=== PATIENT | female | born 1955 | race Caucasian/White ===

== ENCOUNTER 2020-03-11 17:03 | Outpatient (CLI) | payer BC, SELFPAY ==
--- NOTE | ~2020-03-11 | MM_ITS ---
EXAMINATION: MM screening nasir BI w mehdi HISTORY: Screening mammogram TECHNIQUE: Craniocaudal and mediolateral oblique 3-D tomosynthesis images were obtained and synthetic 2-D images were generated. CAD analysis was submitted and interpreted. COMPARISON: 01/25/2019, 01/22/2018, 01/11/2017 bilateral digital screening mammogram examinations BREAST PARENCHYMAL COMPOSITION: There are scattered areas of fibroglandular density. FINDINGS: Surgical clips are noted on the left. There is no evidence of suspicious mass, calcificatio n, or architectural distortion to suggest malignancy in either breast. There has been no suspicious i nterval change. IMPRESSION: 1. No mammographic evidence of malignancy. 2. Recommend routine screening mammography in one year. BI-RADS Category 2: Benign finding(s). Reviewed, dictated and finalized at location A.
== END 2020-03-11 17:04 | disposition home or self-care (01) ==
LOC: ANHIMG 17:08
PROVIDERS: PCP Family Medicine; Visit Provider Family Medicine
DX: Z12.31 Encounter for screening mammogram for malignant neoplasm of breast (principal)
CPT/HCPCS: 77063; 77067

== ENCOUNTER 2020-07-07 08:59 | Outpatient (RCR) | payer BC, SELFPAY | END 2020-09-22 17:55 | disposition home or self-care (01) | LOC: ANHDMC 08:59 | PROVIDERS: PCP Family Medicine; Visit Provider Family Medicine | DX: E11.65 Type 2 diabetes mellitus with hyperglycemia (principal); Z71.89 Other specified counseling | CPT/HCPCS: G0108 ==

== ENCOUNTER 2021-01-15 11:50 | Emergency (ER) | payer SELFPAY | END 2021-01-15 11:53 | disposition left against medical advice (07) | PROVIDERS: PCP Family Medicine | DX: Z53.21 Procedure and treatment not carried out due to patient leaving prior to being seen by health care provider (principal) | CPT/HCPCS: 99199 ==

== ENCOUNTER 2021-01-17 11:05 | Emergency (ER) | payer BC, SELFPAY ==
--- NOTE | ~2021-01-17 | XR_ITS ---
XR shoulder RT min 2V DATE: 01/17/2021 11:21 INDICATION: Pain for 4 days, unable to abduct the arm completely. No injury. TECHNIQUE: 4 views COMPARISON: None FINDINGS: No fracture, dislocation, periosteal reaction or bone destruction. There is mild degenerati ve change at the right acromioclavicular joint. No abnormal soft tissue calcification. Degenerative spurring of the thoracic spine. Degenerative changes are noted at the cervical spine as well. IMPRESSION: Mild degenerative change at the right acromioclavicular joint Degenerative changes of the cervical and thoracic spine Reviewed, dictated and finalized at location B.
[2021-01-17 11:11] VITALS: BP 154/76; PULSE 89; RESP 14; TEMP 36.6; O2SAT 99
--- NOTE | 2021-01-17 12:09 | ED.UPPEXIN ---
HPI - Extremity Injury (Upper) General Chief Complaint: Extremity Injury, Upper Stated Complaint: R SHOULDER PAIN Time Seen by Provider: 01/17/21 11:46 History of Present Illness HPI narrative: Patient is a 65-year-old female who presents to the ER with right shoulder pain. Ongoing for 4 to 5 days. No known injury. Went to urgent care and was prescribed naproxen and methocarbamol. She is still having pain and it is worse at night. She reports she needs something to sleep. No numbness or tingling to the extremity. Pain is worse with certain movements of the shoulder and with turning her head at times. Related Data Home Medications Medication Instructions Recorded Confirmed aspirin 81 mg tablet,delayed 81 mg PO DAILY 06/03/19 09/15/20 release lancets 33 gauge #100 each 06/03/19 09/15/20 Allergies Allergy/AdvReac Type Severity Reaction Status Date / Time dapagliflozin Allergy Unknown yeast Verified 01/17/21 11:07 infections metformin AdvReac Intermediate diarrhea Verified 01/17/21 11:07 celecoxib AdvReac Mild HANDS AND Verified 01/17/21 11:07 FEET NUMB Review of Systems Review of Systems: All systems reviewed & are unremarkable except as noted in HPI and below Constitutional: Constitutional: Denies chills, Denies fever(s) and Denies weakness Cardiovascular: Cardiovascular: Denies chest pain and Denies radiating jaw, neck or arm pain Respiratory: Respiratory: Denies cough and Denies dyspnea Musculoskeletal: Musculoskeletal: Denies arthralgias, Denies joint swelling and Reports muscle cramps Neurologic: Denies syncope, Denies focal weakness and Denies numbness [facility] Past Medical History Medical History (Updated 01/17/21 @ 12:21 by Allen Eller MD) Diabetes mellitus type 2, uncontrolled HLD (hyperlipidemia) HTN (hypertension) Hypothyroidism long-term current use of insulin Family History Family History Mother Family history of osteoporosis Family history of chronic obstructive pulmonary disease Sibling Family history of malignant neoplasm of breast in first degree relative Social History Social History (Updated 09/15/20 @ 16:39 by Destiny Hopper) Social History: Smoking packs per day: 1 Smoking cigarettes per day: 20.0 Years smoked: 30 Smoking pack-years: 30.00 Smoking status: Former smoker Tobacco type: cigarettes Second hand tobacco smoke exposure: No Smoking end date: 06/18/16 Alcohol intake: never Substance use: never Substance use type: does not use Gender identity (if verbalized by the patient): Female Exam Narrative: GENERAL: Well-appearing, well-nourished, and in no acute distress. HEAD: Normocephalic, atraumatic. NECK: Supple. No paraspinal muscular tenderness. No midline tenderness. Range of motion preserved. EXTREMITIES: Tender palpation over the trapezius musculature of the right upper extremity. Point tender in 2 separate areas. No tenderness on the left. Patient has full range of motion with forward flexion as well as internal and external rotation at the shoulder. No joint tenderness. Neurovascular intact in upper extremity. SKIN: Warm, dry, no rash. NEURO: Alert and oriented x3. PSYCH: Normal mood and affect. Course Course Emergency Course: Discussed diagnosis and treatment plan. Patient verbalized understanding. Recommend follow-up with PCP as she may require physical therapy. Vital Signs Vital signs: Vital Signs Temperature 97.8 F 01/17/21 11:11 Pulse Rate 89 01/17/21 11:11 Respiratory Rate 14 01/17/21 11:11 Blood Pressure 154/76 H 01/17/21 11:11 Pulse Oximetry 99 01/17/21 11:11 Temperature 97.8 F 01/17/21 11:11 Pulse Rate 89 01/17/21 11:11 Respiratory Rate 14 01/17/21 11:11 Blood Pressure 154/76 H 01/17/21 11:11 Pulse Oximetry 99 01/17/21 11:11 MDM - Extremity Injury (Upper) Imaging Data Radiologist's impr
[2021-01-17] MEDS: HYDROcodone/acetaminophen (*CRX) 5-325 MG TABLET 1 TAB PO (12:13)
== END 2021-01-17 12:54 | disposition home or self-care (01) ==
PROVIDERS: Emergency Provider Emergency Medicine; PCP Family Medicine
DX: S46.911A Strain of unspecified muscle, fascia and tendon at shoulder and upper arm level, right arm, initial encounter (principal); M62.838 Other muscle spasm; E11.9 Type 2 diabetes mellitus without complications; E78.5 Hyperlipidemia, unspecified; I10 Essential (primary) hypertension; E03.9 Hypothyroidism, unspecified; Z87.891 Personal history of nicotine dependence; Z79.4 Long term (current) use of insulin; Z79.82 Long term (current) use of aspirin; X58.XXXA Exposure to other specified factors, initial encounter
CPT/HCPCS: 73030; 99283; A9270

== ENCOUNTER 2021-04-28 16:52 | Outpatient (CLI) | payer BC, SELFPAY ==
--- NOTE | ~2021-04-28 | MM_ITS ---
EXAMINATION: MM screening nasir BI w mehdi HISTORY: Screening mammogram TECHNIQUE: Craniocaudal and mediolateral oblique 3-D tomosynthesis images were obtained and synthetic 2-D images were generated. CAD analysis was submitted and interpreted. COMPARISON: 03/07/2020, 01/25/2019, 01/22/2018 bilateral screening mammogram examinations BREAST PARENCHYMAL COMPOSITION: There are scattered areas of fibroglandular density. FINDINGS: Surgical clips are noted in the mid inner left breast; history of prior benign left breast biopsy 20 years ago. Scattered small low-density circumscribed opacities are noted, particularly in t he outer left breast, stable in appearance. Occasional bilateral benign calcifications. There is no e vidence of suspicious mass, calcification, or architectural distortion to suggest malignancy in eithe r breast. There has been no suspicious interval change. IMPRESSION: 1. No mammographic evidence of malignancy. 2. Recommend routine screening mammography in one year. BI-RADS Category 2: Benign finding(s). Reviewed, dictated and finalized at location A. BUILDER
== END 2021-04-28 16:53 | disposition home or self-care (01) ==
LOC: ANHIMG 16:55
PROVIDERS: PCP Family Medicine; Visit Provider Family Medicine
DX: Z12.31 Encounter for screening mammogram for malignant neoplasm of breast (principal)
CPT/HCPCS: 77063; 77067

== ENCOUNTER 2021-08-22 17:02 | Emergency (ER) | payer BC, SELFPAY ==
[2021-08-22 17:06] VITALS: BP 154/74; PULSE 90; RESP 16; TEMP 36.8; O2SAT 98
--- NOTE | 2021-08-22 17:16 | ED.FEMALEGU ---
HPI - Female Genitourinary General Chief complaint: Urogenital-Female Stated complaint: Urinary pain Time Seen by Provider: 08/22/21 17:17 Source: patient and RN notes reviewed Mode of arrival: ambulatory Limitations: no limitations History of Present Illness HPI Narrative: 65-year-old female with history of urinary tract infections reports dysuria, frequency, cloudy urine with a foul smell for several days. She denies taking any [id number] medications for relief. She denies fever, back pain, abdominal pain. She denies abnormal vaginal discharge. MD elicited complaint: UTI Related Data Home Medications Medication Instructions Recorded Confirmed aspirin 81 mg tablet,delayed 81 mg PO DAILY 06/03/19 08/22/21 release lancets 33 gauge #100 each 06/03/19 08/22/21 insulin degludec [Tresiba 50 unit SUBCUT DAILY 08/22/21 08/22/21 FlexTouch U-100] Allergies Allergy/AdvReac Type Severity Reaction Status Date / Time dapagliflozin Allergy Unknown yeast Verified 08/22/21 17:08 infections metformin AdvReac Intermediate diarrhea Verified 08/22/21 17:08 celecoxib AdvReac Mild HANDS AND Verified 08/22/21 17:08 FEET NUMB Review of Systems Review of Systems: CONSTITUTIONAL: Denies malaise, chills, sweats, or fever. CARDIOVASCULAR: Denies chest pain, palpitations, or edema. RESPIRATORY: Denies cough or dyspnea. GASTROINTESTINAL: Denies abdominal pain, nausea, vomiting, diarrhea GENITOURINARY: Reports dysuria, frequency, malodorous and cloudy urine. Denies urgency, suprapubic pressure. Denies flank pain or hematuria. SKIN: Denies rash or itching. MUSCULOSKELETAL: Denies back pain or myalgia. All systems reviewed & are unremarkable except as noted in HPI and below PMFSH Past Medical History Medical History Diabetes mellitus type 2, uncontrolled HLD (hyperlipidemia) HTN (hypertension) Hypothyroidism group home current use of insulin Family History Family History Mother Family history of osteoporosis Family history of chronic obstructive pulmonary disease Sibling Family history of malignant neoplasm of breast in first degree relative Social History Social History (Updated 07/13/21 @ 16:31 by Violet Grant Social History: Smoking packs per day: 1 Smoking cigarettes per day: 20.0 Years smoked: 30 Smoking pack-years: 30.00 Smoking status: Former smoker Tobacco type: cigarettes Second hand tobacco smoke exposure: No Smoking end date: 06/18/16 Alcohol intake: never Substance use: never Substance use type: does not use Gender identity (if verbalized by the patient): Female Sexual Orientation (if Verbalized by the Patient): Straight or Heterosexual Comments At time of signature, agree with nursing past medical, surgical, social and family history. There is no relevant family history pertinent to the presenting complaint Exam Narrative: GENERAL: Well-appearing, well-nourished, and in no acute distress. HEAD: Normocephalic. EYES: PERRLA, conjunctivae clear. NECK: Supple. No lymphadenopathy CHEST: Clear to auscultation. No respiratory distress. HEART: Regular rate and rhythm. ABDOMEN: Soft, nontender upon palpation, nondistended, normal active bowel sounds, no palpable or pulsatile masses, no guarding. No CVA tenderness SKIN: Warm, dry, no rash. NEURO: Alert and oriented x3. PSYCH: Normal mood and affect Course Course Emergency Course: Patient is aware of diagnosis, understands and agrees to treatment plan. Anticipatory guidance given. Patient agrees to follow-up as directed and is aware of reasons to seek care at the emergency department. Portions of this record may have been created with voice recognition software Level of Care: Express Care Visit Vital Signs Vital signs: Vital Signs Temperature 98.3 F 08/22/21 17:06 Pulse Rate 90
== END 2021-08-22 17:25 | disposition home or self-care (01) ==
PROVIDERS: Emergency Provider Nurse Practitioner; PCP Family Medicine
DX: N39.0 Urinary tract infection, site not specified (principal); Z87.891 Personal history of nicotine dependence; E11.9 Type 2 diabetes mellitus without complications; E78.5 Hyperlipidemia, unspecified; I10 Essential (primary) hypertension; E03.9 Hypothyroidism, unspecified; Z79.4 Long term (current) use of insulin; Z79.82 Long term (current) use of aspirin
CPT/HCPCS: 81003; 87077; 87086; 87186; 99213; G0463

== ENCOUNTER 2022-04-03 01:06 | Day surgery (SDC) | payer BC, SELFPAY ==
[2022-03-16 12:06] VITALS: BMI 39.9
--- NOTE | 2022-03-31 15:52 | PM.HPGS ---
History of Present Illness History of Present Illness Consent: Risks, benefits, and alternatives have been discussed and questions answered. Patient agrees to proceed with procedure. Chief complaint: neoplasm screening Narrative: Emilie Reno is a 66 year old female Referred for colon cancer screening. 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 Family History Family History Mother Family history of osteoporosis Family history of chronic obstructive pulmonary disease Sibling Family history of malignant neoplasm of breast in first degree relative Social History Social History Social History: Smoking packs per day: 1 Smoking cigarettes per day: 20.0 Years smoked: 30 Smoking pack-years: 30.00 Smoking status: Former smoker Tobacco type: cigarettes Second hand tobacco smoke exposure: No Smoking end date: 06/18/16 Alcohol intake: never Substance use: never Substance use type: does not use Living arrangements: with family Gender identity (if verbalized by the patient): Female Sexual Orientation (if Verbalized by the Patient): Straight or Heterosexual Spiritual care concerns: No Meds Home Medications and Allergies Home Medications Medication Instructions Recorded Confirmed Type aspirin 81 mg tablet,delayed 81 mg PO DAILY 06/03/19 03/16/22 History release (Aspir-Low) lancets 33 gauge (OneTouch Delica #100 ea 06/03/19 02/23/22 History Lancets) blood sugar diagnostic (Accu-Chek #100 ea 04/26/20 02/23/22 Rx Guide test strips) blood-glucose meter (Accu-Chek #1 ea 04/26/20 02/23/22 Rx Guide Glucose Meter) lancets #100 ea 08/30/20 02/23/22 Rx fenofibrate 54 mg tablet 54 mg PO DAILY #90 tabs 10/17/21 03/16/22 Rx semaglutide 2 mg/dose (8 mg/3 mL) 2 mg (0.75 mL) subcut WEEKLY 3 02/23/22 03/16/22 Rx subcutaneous pen injector (Ozempic) months #9.75 mL insulin degludec 200 unit/mL (3 65 unit subcut DAILY 03/16/22 03/16/22 History mL) subcutaneous pen (Tresiba FlexTouch U-200 insulin) levothyroxine 137 mcg tablet 137 mcg PO DAILY 03/16/22 03/16/22 History metoprolol succinate 100 mg 100 mg PO DAILY 03/16/22 03/16/22 History tablet,extended release 24 hr rosuvastatin 10 mg tablet 10 mg PO DAILY 03/16/22 03/16/22 History valsartan 80 mg tablet 80 mg PO DAILY 03/16/22 03/16/22 History Allergies Allergy/AdvReac Type Severity Reaction Status Date / Time metformin AdvReac Intermediate diarrhea Verified 04/03/22 07:05 celecoxib AdvReac Mild HANDS AND Verified 04/03/22 07:05 FEET NUMB dapagliflozin AdvReac Unknown yeast Verified 04/03/22 07:05 infections Exam Const: General: alert Orientation/consciousness: patient oriented x3 Resp: Auscultation: clear to auscultation bilaterally Cardio: Rhythm: regular rhythm GI: GI Palp: Yes Soft to palpation and No Tenderness to palpation present (GI) Neuro: General: patient oriented x3 Assessment and Plan Assessment and plan (1) Colon cancer screening: Code(s): Z12.11 - Encounter for screening for malignant neoplasm of colon Status: Acute Assessment and Plan: Colonoscopy with possible biopsy or polypectomy or cautery or injection of substances.
[2022-04-03 07:07] VITALS: BP 179/108; PULSE 123; RESP 20; TEMP 36.6; O2SAT 98; BMI 39.9
[2022-04-03] MEDS: LACTATED RINGERS 1,000 ML 150 ML IV CONT (07:10)
--- NOTE | 2022-04-03 07:17 | WPDANESEPPF ---
Anes - Initial Pre Proc Eval Procedure: Operation Date: 04/03/22 08:00 Proposed Procedures p Screening Colonoscopy - Marc Gilbert MD Date/Time: 04/03/22 07:17 Surgeon: Marc Gilbert MD Pre Op Diagnosis: neoplasm screening Patient Data Age: 66 Gender: F Height: 1.75 m Weight: 122.7 kg Last Vital Signs Temp 36.6 C 04/03/22 07:07 Pulse 123 H 04/03/22 07:07 Resp 20 04/03/22 07:07 BP 179/108 H 04/03/22 07:07 Pulse Ox 98 04/03/22 07:07 O2 Del Method Room Air 04/03/22 07:07 Allergies Allergy/AdvReac Type Severity Reaction Status Date / Time metformin AdvReac Intermediate diarrhea Verified 04/03/22 07:05 celecoxib AdvReac Mild HANDS AND Verified 04/03/22 07:05 FEET NUMB dapagliflozin AdvReac Unknown yeast Verified 04/03/22 07:05 infections Home Medications Medication Instructions Recorded Confirmed Type aspirin 81 mg tablet,delayed 81 mg PO DAILY 06/03/19 03/16/22 History release (Aspir-Low) lancets 33 gauge (OneTouch Delica #100 ea 06/03/19 02/23/22 History Lancets) blood sugar diagnostic (Accu-Chek #100 ea 04/26/20 02/23/22 Rx Guide test strips) blood-glucose meter (Accu-Chek #1 ea 04/26/20 02/23/22 Rx Guide Glucose Meter) lancets #100 ea 08/30/20 02/23/22 Rx fenofibrate 54 mg tablet 54 mg PO DAILY #90 tabs 10/17/21 03/16/22 Rx semaglutide 2 mg/dose (8 mg/3 mL) 2 mg (0.75 mL) subcut WEEKLY 3 02/23/22 03/16/22 Rx subcutaneous pen injector (Ozempic) months #9.75 mL insulin degludec 200 unit/mL (3 65 unit subcut DAILY 03/16/22 03/16/22 History mL) subcutaneous pen (Tresiba FlexTouch U-200 insulin) levothyroxine 137 mcg tablet 137 mcg PO DAILY 03/16/22 03/16/22 History metoprolol succinate 100 mg 100 mg PO DAILY 03/16/22 03/16/22 History tablet,extended release 24 hr rosuvastatin 10 mg tablet 10 mg PO DAILY 03/16/22 03/16/22 History valsartan 80 mg tablet 80 mg PO DAILY 03/16/22 03/16/22 History Patient hx anesthesia problems: none Family hx anesthesia problems: none Results Review: All pre-operative results and documents have been reviewed as part of the pre-operative evaluation. [facility] Past Medical History Medical History Diabetes mellitus type 2, uncontrolled HLD (hyperlipidemia) HTN (hypertension) Hypothyroidism prison current use of insulin Family History Family History Mother Family history of osteoporosis Family history of chronic obstructive pulmonary disease Sibling Family history of malignant neoplasm of breast in first degree relative Social History Social History Social History: Smoking packs per day: 1 Smoking cigarettes per day: 20.0 Years smoked: 30 Smoking pack-years: 30.00 Smoking status: Former smoker Tobacco type: cigarettes Second hand tobacco smoke exposure: No Smoking end date: 06/18/16 Alcohol intake: never Substance use: never Substance use type: does not use Living arrangements: with family Gender identity (if verbalized by the patient): Female Sexual Orientation (if Verbalized by the Patient): Straight or Heterosexual Spiritual care concerns: No Anes - Eval Final PreProcedure Day of Procedure 04/03/22 07:17 Patient weight: obese Heart: regular rate and rhythm Lungs: clear to auscultation Airway: Mallampati scale class II Neurological: alert and oriented Last oral intake: >/= 8 hours ASA classification: III Emergent: no Anesthetic plan: proceed Anesthesia type and monitoring: general GIVS and standard monitoring Results Review: All pre-operative results and documents have been reviewed as part of the pre-operative evaluation. Informed Consent: The patient's anesthetic plan and its attendant risks and benefits were discussed with the patient/family/POA. Questions were solicited and ans
[2022-04-03 07:21] LABS: Glucose Point of Care 245 mg/dl (65-105)
[2022-04-03 08:22] VITALS: BP 133/69; PULSE 90; RESP 16; O2SAT 95
[2022-04-03 08:32] VITALS: BP 139/78; PULSE 87; RESP 17; O2SAT 98
[2022-04-03 08:42] VITALS: BP 118/75; PULSE 83; RESP 18; O2SAT 99
[2022-04-03 08:51] LABS: Glucose Point of Care 217 mg/dl (65-105)
== END 2022-04-03 08:51 | disposition home or self-care (01) ==
PROVIDERS: PCP Family Medicine; Visit Provider Internal Medicine Gastroenterology
PROC: 0DJD8ZZ Inspection of Lower Intestinal Tract, Via Natural or Artificial Opening Endoscopic (ICD-10-PCS; CPT 45378; principal; 2022-04-03 08:00)
DX: Z12.11 Encounter for screening for malignant neoplasm of colon (principal); D12.5 Benign neoplasm of sigmoid colon; Z79.82 Long term (current) use of aspirin; Z79.4 Long term (current) use of insulin; I10 Essential (primary) hypertension; E03.9 Hypothyroidism, unspecified; E11.9 Type 2 diabetes mellitus without complications; E78.5 Hyperlipidemia, unspecified; Z87.891 Personal history of nicotine dependence; E66.9 Obesity, unspecified; Z68.39 Body mass index [BMI] 39.0-39.9, adult
CPT/HCPCS: 45385; 45381; 82948; 88305; J2704; J7120

== ENCOUNTER 2022-05-08 16:05 | Emergency (ER) | payer BC, SELFPAY ==
--- NOTE | 2022-05-08 16:14 | ED.URI ---
HPI - URI/Sore Throat General Chief Complaint: Upper Respiratory Infection Stated Complaint: Sore Throat, Rt Ear Irritation Time Seen by Provider: 05/08/22 16:15 Source: patient and RN notes reviewed History of Present Illness HPI Narrative: Patient is a 66-year-old female who presents to the Urgent Care with complaints of right ear pain and sore throat. Patient states that it started on Sunday and she has been taking Tylenol and ibuprofen for the pain. Patient denies any fevers, nausea, vomiting or headaches. Denies any ill exposures. No other acute complaints. No acute distress noted. Patient aware of the plan of care. Some parts of this dictation were generated by voice recognition software and may contain typographical and/or grammatical inaccuracies. Related Data Home Medications Medication Instructions Recorded Confirmed aspirin 81 mg tablet,delayed 81 mg PO DAILY 06/03/19 05/08/22 release (Aspir-Low) lancets 33 gauge (OneTouch Delica #100 ea 06/03/19 02/23/22 Lancets) insulin degludec 200 unit/mL (3 65 unit subcut DAILY 03/16/22 05/08/22 mL) subcutaneous pen (Tresiba FlexTouch U-200 insulin) metoprolol succinate 100 mg 100 mg PO DAILY 03/16/22 05/08/22 tablet,extended release 24 hr valsartan 80 mg tablet 80 mg PO DAILY 03/16/22 05/08/22 Allergies Allergy/AdvReac Type Severity Reaction Status Date / Time metformin AdvReac Intermediate diarrhea Verified 05/08/22 16:14 celecoxib AdvReac Mild HANDS AND Verified 05/08/22 16:14 FEET NUMB dapagliflozin AdvReac Unknown yeast Verified 05/08/22 16:14 infections Review of Systems Review of Systems: CONSTITUTIONAL: Denies fever, chills, or sweats. EYES: Denies visual changes, redness, or discharge. ENT: Reports of sore throat and right otalgia CARDIOVASCULAR: Denies chest pain, palpitations, or edema. RESPIRATORY: Denies cough or dyspnea. GASTROINTESTINAL: Denies abdominal pain, nausea, vomiting, or diarrhea. GENITOURINARY: Denies dysuria or hematuria. SKIN: Denies rash or itching. MUSCULOSKELETAL: Denies back pain, joint pain, or myalgia. NEUROLOGIC: Denies headache, numbness, or weakness. All other systems reviewed are negative, except as documented in HPI. [facility] Past Medical History Medical History Diabetes mellitus type 2, uncontrolled HLD (hyperlipidemia) HTN (hypertension) Hypothyroidism [facility] current use of insulin Family History Family History Mother Family history of osteoporosis Family history of chronic obstructive pulmonary disease Sibling Family history of malignant neoplasm of breast in first degree relative Social History Social History Social History: Smoking packs per day: 1 Smoking cigarettes per day: 20.0 Years smoked: 30 Smoking pack-years: 30.00 Smoking status: Former smoker Tobacco type: cigarettes Second hand tobacco smoke exposure: No Smoking end date: 06/18/16 Alcohol intake: never Substance use: never Substance use type: does not use Gender identity (if verbalized by the patient): Female Sexual Orientation (if Verbalized by the Patient): Straight or Heterosexual Spiritual care concerns: No Comments At the time of my signature, I reviewed and agree with the nursing past medical, surgical, social, and family history. There is no relevant family history pertinent to the patient complaint. Exam Narrative: GENERAL: This is a well-nourished, well-developed patient, in no apparent distress. HEAD: normocephalic, atraumatic. EYES: PERRL. Sclera clear/white. Vision is grossly intact. EARS: External ears normal, auditory canals clear and without drainage, TMs normal without perforation. Hearing grossly intact. NOSE: External nose normal with no obvious nasal discharge, nares without redness, no rhinorrhea. T
[2022-05-08 16:19] VITALS: BP 158/74; PULSE 91; RESP 16; TEMP 36.4; O2SAT 98
== END 2022-05-08 16:37 | disposition home or self-care (01) ==
PROVIDERS: Emergency Provider Nurse Practitioner Family; PCP Family Medicine
DX: J02.0 Streptococcal pharyngitis (principal); Z87.891 Personal history of nicotine dependence; E11.9 Type 2 diabetes mellitus without complications; E78.5 Hyperlipidemia, unspecified; I10 Essential (primary) hypertension; E03.9 Hypothyroidism, unspecified; Z79.4 Long term (current) use of insulin; Z79.82 Long term (current) use of aspirin
CPT/HCPCS: 87880; 99213; G0463

== ENCOUNTER 2022-06-19 13:00 | Emergency (ER) | payer BC, SELFPAY ==
[2022-06-19 15:22] VITALS: BP 162/89; PULSE 109; RESP 20; TEMP 37.2; O2SAT 97
--- NOTE | 2022-06-19 15:40 | ED.URI ---
HPI - URI/Sore Throat General Chief Complaint: Upper Respiratory Infection Stated Complaint: sinus drainage, cough, sore throat Time Seen by Provider: 06/19/22 15:40 Source: patient and RN notes reviewed Mode of arrival: ambulatory Limitations: no limitations History of Present Illness HPI Narrative: 66-year-old female presented for complaint of sinus congestion, headache, mild cough. Onset 4 days. She denies associated shortness of breath, wheezing, nausea, vomiting, diarrhea, fevers or chills. She has not taking anything for symptoms. She denies sick contacts. MD elicited complaint: cough Related Data Home Medications Medication Instructions Recorded Confirmed aspirin 81 mg tablet,delayed 81 mg PO DAILY 06/03/19 06/19/22 release (Aspir-Low) lancets 33 gauge (OneTouch Delica #100 ea 06/03/19 05/10/22 Lancets) insulin degludec 200 unit/mL (3 65 unit subcut DAILY 03/16/22 06/19/22 mL) subcutaneous pen (Tresiba FlexTouch U-200 insulin) metoprolol succinate 100 mg 100 mg PO DAILY 03/16/22 06/19/22 tablet,extended release 24 hr valsartan 80 mg tablet 80 mg PO DAILY 03/16/22 06/19/22 pen needle, diabetic 31 gauge x #50 ea 05/10/22 05/10/22 3/16 (BD Ultra-Fine Mini Pen Needle) Allergies Allergy/AdvReac Type Severity Reaction Status Date / Time metformin AdvReac Intermediate diarrhea Verified 05/10/22 10:02 celecoxib AdvReac Mild HANDS AND Verified 05/10/22 10:02 FEET NUMB dapagliflozin AdvReac Unknown yeast Verified 05/10/22 10:02 infections Review of Systems Review of Systems: Per HPI [facility] Past Medical History Medical History Diabetes mellitus type 2, uncontrolled HLD (hyperlipidemia) HTN (hypertension) Hypothyroidism assisted current use of insulin Family History Family History Mother Family history of osteoporosis Family history of chronic obstructive pulmonary disease Sibling Family history of malignant neoplasm of breast in first degree relative Social History Social History Social History: Smoking packs per day: 1 Smoking cigarettes per day: 20.0 Years smoked: 30 Smoking pack-years: 30.00 Smoking status: Former smoker Tobacco type: cigarettes Second hand tobacco smoke exposure: No Smoking end date: 06/18/16 Alcohol intake: never Substance use: never Substance use type: does not use Gender identity (if verbalized by the patient): Female Sexual Orientation (if Verbalized by the Patient): Straight or Heterosexual Spiritual care concerns: No Exam Narrative: GENERAL: Ill-appearing, nontoxic no acute distress. HEAD: Normocephalic EYES: PERRLA, conjunctivae clear ENT: Mucous membranes moist. TM pearly mcrae with dull light reflex bilaterally; no tragal tenderness. Oropharynx erythematous without lesions or exudate CHEST: Clear to auscultation, breath sounds equal. No wheezing, rhonchi, rales, or stridor. No respiratory distress, speaks in full sentences. HEART: Regular rate and rhythm. No murmur heard. SKIN: Warm, dry, no rash. NEURO: Alert and oriented x3. PSYCH: Normal mood and affect Course Course Emergency Course: Patient is aware of diagnosis, understands and agrees to treatment plan. Anticipatory guidance given. Patient agrees to follow-up as directed and is aware of reasons to seek care at the emergency department. Portions of this record may have been created with voice recognition software Level of Care: Express Care Visit Vital Signs Vital signs: Vital Signs Temperature 99.0 F 06/19/22 15:22 Pulse Rate 109 H 06/19/22 15:22 Respiratory Rate 20 06/19/22 15:22 Blood Pressure 162/89 H 06/19/22 15:22 Pulse Oximetry 97 06/19/22 15:22 Oxygen Delivery Room Air 06/19/22 15:22 Temperature 99.0 F 06/19/22 15:22 Pulse Ra
== END 2022-06-19 15:52 | disposition home or self-care (01) ==
PROVIDERS: Emergency Provider Nurse Practitioner Family; PCP Family Medicine
DX: B34.9 Viral infection, unspecified (principal); E11.9 Type 2 diabetes mellitus without complications; Z79.4 Long term (current) use of insulin; E78.5 Hyperlipidemia, unspecified; I10 Essential (primary) hypertension; E03.9 Hypothyroidism, unspecified; Z87.891 Personal history of nicotine dependence; Z79.82 Long term (current) use of aspirin
CPT/HCPCS: 99213; G0463

== ENCOUNTER 2022-06-22 16:39 | Outpatient (CLI) | payer BC, SELFPAY ==
--- NOTE | ~2022-06-22 | MM_ITS ---
EXAMINATION: MM screening nasir BI w mehdi HISTORY: Screening mammogram, family history of breast cancer in her sister. TECHNIQUE: Craniocaudal and mediolateral oblique 3-D tomosynthesis images were obtained and synthetic 2-D images were generated. CAD analysis was submitted and interpreted. COMPARISON: 04/28/2021, 03/11/2020, 01/25/2019 BREAST PARENCHYMAL COMPOSITION: There are scattered areas of fibroglandular density. FINDINGS: No suspicious mass, calcification, or architectural distortion are identified in either dayna ast to suggest malignancy. There has been no suspicious interval change. IMPRESSION: 1. No mammographic evidence of malignancy. 2. Recommend routine screening mammography in one year. BI-RADS Category 1: Negative Reviewed, dictated and finalized at location A. ATION NURSE
== END 2022-06-22 16:40 | disposition home or self-care (01) ==
PROVIDERS: PCP Family Medicine; Visit Provider Physician Assistant
DX: Z12.31 Encounter for screening mammogram for malignant neoplasm of breast (principal)
CPT/HCPCS: 77063; 77067

== ENCOUNTER 2023-08-06 11:45 | Emergency (ER) | payer BC, SELFPAY ==
[2023-08-06 11:53] VITALS: BP 134/79; PULSE 82; RESP 18; TEMP 36.2; O2SAT 99
--- NOTE | 2023-08-06 12:47 | ED.URI ---
HPI - URI/Sore Throat General Chief Complaint: Upper Respiratory Infection Stated Complaint: Sinus Infection Symptoms Time Seen by Provider: 08/06/23 12:36 Source: patient and RN notes reviewed Mode of arrival: ambulatory Limitations: no limitations History of Present Illness HPI Narrative: Patient presents today complaining of a 7 day history of nasal congestion, sinus pressure, postnasal drip, cough. States her nasal secretions have transitioned from clear to thick green. States she initially had a fever at onset, but this has resolved. Denies shortness of breath, sore throat. She has been using [place] Plus without relief. She is unable to take any additional cold medicine as she has tachycardia at baseline. History of diabetes for which she uses insulin and semaglutide. Related Data Home Medications Medication Instructions Recorded Confirmed aspirin 81 mg tablet,delayed 81 mg PO DAILY 06/03/19 08/06/23 release (Aspir-Low) lancets 33 gauge (Meedor Delica #100 ea 06/03/19 06/12/23 Lancets) Allergies Allergy/AdvReac Type Severity Reaction Status Date / Time metformin AdvReac Intermediate diarrhea Verified 08/06/23 12:22 celecoxib AdvReac Mild HANDS AND Verified 08/06/23 12:22 FEET NUMB dapagliflozin AdvReac Unknown yeast Verified 08/06/23 12:22 infections Review of Systems Review of Systems: CONSTITUTIONAL: Denies body aches, chills, or sweats.+ fever-resolved EYES: Denies visual changes, redness, or discharge. ENT: Denies sore throat, or otalgia.+ congestion, postnasal drip, sinus drainage, sinus pressure CARDIOVASCULAR: Denies chest pain, palpitations, or edema. RESPIRATORY: Denies dyspnea.+ cough GASTROINTESTINAL: Denies abdominal pain, nausea, vomiting, or diarrhea. GENITOURINARY: Denies dysuria or hematuria. SKIN: Denies rash, itching, or wounds. MUSCULOSKELETAL: Denies back pain, joint pain, or myalgia. NEUROLOGIC: Denies headache, numbness, tingling, or weakness. PSYCH: Denies depression or anxiety. 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 Type 2 diabetes mellitus Vitamin B12 deficiency Vitamin D deficiency Surgical History Surgical History History of hysterectomy Previous back surgery x3 Previous section Family History Family History Mother Family history of osteoporosis Family history of chronic obstructive pulmonary disease Sibling Family history of malignant neoplasm of breast in first degree relative Social History Social History Social History: Smoking packs per day: 1 Smoking cigarettes per day: 20.0 Years smoked: 30 Smoking pack-years: 30.00 Smoking status: Former smoker Tobacco type: cigarettes Second hand tobacco smoke exposure: No Smoking end date: 06/18/16 Alcohol intake: never Substance use: never Substance use type: does not use Living arrangements: with family Occupation/Education: occupation Gender identity (if verbalized by the patient): Female Sexual Orientation (if Verbalized by the Patient): Straight or Heterosexual Spiritual care concerns: No Comments At time of signature, I have reviewed and agree with nursing past medical, surgical, social and family history unless otherwise noted. Please see nursing chart for further information. There is no relevant family history pertinent to the presenting complaint Exam Narrative: GENERAL: Mildly ill-appearing, well-nourished, and in no acute distress. HEAD: Normocephalic, atraumatic. EYES: EOMI. No redness or drainage. Conjunctivae normal. ENT: Mucous membranes pink and moist. Dale
== END 2023-08-06 12:57 | disposition home or self-care (01) ==
PROVIDERS: Emergency Provider Nurse Practitioner; PCP Family Medicine
DX: J32.9 Chronic sinusitis, unspecified (principal); Z87.891 Personal history of nicotine dependence; E78.5 Hyperlipidemia, unspecified; I10 Essential (primary) hypertension; E03.9 Hypothyroidism, unspecified; E11.9 Type 2 diabetes mellitus without complications; Z79.4 Long term (current) use of insulin; Z79.82 Long term (current) use of aspirin
CPT/HCPCS: 99213; G0463

== ENCOUNTER 2023-10-10 15:26 | Outpatient (CLI) | payer BC, SELFPAY ==
--- NOTE | ~2023-10-10 | MM_ITS ---
EXAMINATION: MM screening nasir BI w mehdi HISTORY: Screening mammogram TECHNIQUE: Craniocaudal and mediolateral oblique 3-D tomosynthesis images were obtained and synthetic 2-D images were generated. CAD analysis was submitted and interpreted. COMPARISON: 06/22/2022, 04/28/2021 bilateral screening mammogram examinations BREAST PARENCHYMAL COMPOSITION: There are scattered areas of fibroglandular density. FINDINGS: Prominent bilateral arterial calcifications are noted; this may be associated with increase d risk for clinically significant cardiovascular disease. Surgical clips are again noted in the inner mid left breast; history of prior benign left breast biop sy. There is no evidence of suspicious mass, calcification, or architectural distortion to suggest ma lignancy in either breast. There has been no suspicious interval change. IMPRESSION: 1. No mammographic evidence of malignancy. 2. Recommend routine screening mammography in one year. BI-RADS Category 2: Benign finding(s). Reviewed, dictated and finalized at location A.
== END 2023-10-10 15:27 | disposition home or self-care (01) ==
LOC: ANHIMG 15:27
PROVIDERS: PCP Family Medicine; Visit Provider Physician Assistant
DX: Z12.31 Encounter for screening mammogram for malignant neoplasm of breast (principal)
CPT/HCPCS: 77063; 77067

== ENCOUNTER 2024-02-29 15:57 | Outpatient (CLI) | payer BC, SELFPAY ==
--- NOTE | ~2024-02-29 | XR_ITS ---
XR hip LT 2V w AP pelvis Ordering provider: Kvng Szymanski PA-C History: . M25.552 - Pain in left hip . Comparison: None. FINDINGS: BONES: No acute fracture or dislocation. HIP JOINT SPACES: Bilateral severe hip osteoarthritic changes. SACROILIAC JOINT SPACES/LUMBAR SPINE: The sacroiliac joint spaces are normal. Mild degenerative johnson es of the visualized lower lumbar spine. PUBIC SYMPHYSIS: Normal. SOFT TISSUES: Normal. IMPRESSION: No acute osseous abnormality pelvis and left hip. Reviewed, dictated and finalized at location A.
== END 2024-02-29 15:58 | disposition home or self-care (01) ==
PROVIDERS: PCP Family Medicine; Visit Provider Physician Assistant
DX: M25.552 Pain in left hip (principal)
CPT/HCPCS: 73502

== ENCOUNTER 2024-06-29 17:52 | Emergency (ER) | payer BC, SELFPAY ==
[2024-06-29 18:03] VITALS: BP 157/71; PULSE 108; RESP 16; TEMP 37.7; O2SAT 96
--- NOTE | 2024-06-29 18:13 | ED_ITS ---
HPI - URI/Sore Throat General Chief Complaint: Urogenital-Female Stated Complaint: UTI SYMPTOMS/COLD SYMPTOMS Time Seen by Provider: 06/29/24 18:13 Source: patient Mode of arrival: ambulatory Limitations: no limitations History of Present Illness HPI Narrative: 68-year-old female presents with complaint of cough, nasal congestion, fatigue and body aches for 2 days. Taking Tylenol and ibuprofen to treat symptoms. Also reports urinary frequency, dysuria, foul-smelling urine for 3 days. Afebrile. No chest pain or shortness of breath. Denies nausea vomiting diarrhea. All systems reviewed and negative except as noted above. Related Data Home Medications ?Medication ?Instructions ?Recorded ?Confirmed ?Last Taken ?Type aspirin 81 mg tablet,delayed 81 mg PO DAILY 06/03/19 06/29/24 04/02/22 History release (Aspir-Low) lancets 33 gauge (TERMINALFOURmarleen #100 ea 06/03/19 06/17/24 04/02/22 History Lancets) Allergies Allergy/AdvReac Type Severity Reaction Status Date / Time metformin AdvReac Intermediate diarrhea Verified 06/29/24 17:59 celecoxib AdvReac Mild HANDS AND Verified 06/29/24 17:59 FEET NUMB dapagliflozin AdvReac Unknown yeast Verified 06/29/24 17:59 infections Review of Systems Review of Systems: CONSTITUTIONAL: Denies fever, chills, or sweats. Reports fatigue. EYES: Denies visual changes, redness, or discharge. ENT: Reports rhinorrhea, congestion. Denies sore throat, or otalgia. CARDIOVASCULAR: Denies chest pain, palpitations, or edema. RESPIRATORY: Reports cough. Denies dyspnea. GASTROINTESTINAL: Denies abdominal pain, nausea, vomiting, or diarrhea. GENITOURINARY: Reports dysuria, frequency. Denies hematuria. SKIN: Denies rash or itching. MUSCULOSKELETAL: Denies back pain, joint pain. Reports myalgia. NEUROLOGIC: Denies headache, numbness, or weakness. PSYCHIATRIC: Denies anxiety or depression. All other systems reviewed are negative, except as documented in HPI. [facility] Past Medical History Medical History Type 2 diabetes mellitus Vitamin B12 deficiency Vitamin D deficiency BMI greater than 40 HLD (hyperlipidemia) HTN (hypertension) retirement current use of insulin Hypothyroidism Surgical History Surgical History History of hysterectomy Previous back surgery x3 Previous section Family History Family History Mother Family history of osteoporosis Family history of chronic obstructive pulmonary disease Sibling Family history of malignant neoplasm of breast in first degree relative Social History Social History Social History: Smoking packs per day: 1 Smoking cigarettes per day: 20.0 Years smoked: 30 Smoking pack-years: 30.00 Smoking status: Former smoker Tobacco type: cigarettes Second hand tobacco smoke exposure: No Smoking end date: 06/18/16 Alcohol intake: never Substance use: never Substance use type: does not use Do You Feel Safe in your Home?: Yes Lack of Transportation: No Lack of Food: Never True Current Housing: I Have Housing Concerned About Future Housing: No Difficulty Paying Gas/Electric Bills: No Difficulty Paying for Meds: No Currently Unemployed: No Education: Associate Degree Difficulty w/ Childcare or Family Care: No Living arrangements: with family Occupation/Education: occupation Gender identity (if verbalized by the patient): Female Sexual Orientation (if Verbalized by the Patient): Straight or Heterosexual Spiritual care concerns: No Comments At time of signature, agree with nursing past medical, surgical, social and family history. There is no relevant family history pertinent to the presenting complaint. Exam Narrative: GENERAL: This is a well-nourished, well-developed patient, patient ill-appearing but in no acute distress HEAD: normocephalic, atraumatic. EYES: PERRL. Sclera clear/white. Vision is grossly intact. EARS: External ears normal, auditory canals clear and without drainage, TMs normal without perforation. Hearing grossly intact. NOSE: External nose normal with mild congestion with clear nasal drainage THROAT: Mucous membranes moist, posterior pharynx clear. NECK: Neck supple, non-tender without lymphadenopathy, masses or thyromegaly. CARDIOVASCULAR: Regular rate and rhythm without murmurs, gallops, or rubs. RESPIRATORY: Clear to auscultation. Breath sounds equal bilaterally. No wheezes, rales, or rhonchi. SKIN: warm, Dry, intact with no suspicious lesions or rash, good texture and turgor. NEURO: awake, alert, and oriented to person, place and time. There were no obvious focal neurologic abnormalities. EXTREMITIES: No joint tenderness, effusion, or edema noted. BACK: No CVA tenderness. Course Course Level of Care: Express Care Visit Vital Signs Vital signs: Vital Signs Temperature 37.7 C H 06/29/24 18:03 Pulse Rate 108 H 06/29/24 18:03 Respiratory Rate 16 06/29/24 18:03 Blood Pressure 157/71 H 06/29/24 18:03 Pulse Oximetry 96 06/29/24 18:03 Oxygen Delivery Room Air 06/29/24 18:03 Temperature 37.7 C H 06/29/24 18:03 Pulse Rate 108 H 06/29/24 18:03 Respiratory Rate 16 06/29/24 18:03 Blood Pressure 157/71 H 06/29/24 18:03 Pulse Oximetry 96 06/29/24 18:03 Oxygen Delivery Room Air 06/29/24 18:03 Reviewed MDM - URI/Sore Throat MDM Narrative Medical decision making narrative: Positive for influenza A. Will treat with Tamiflu. Recommend continuing tcgw-dqj-exlanhy medications to treat symptoms. Patient is well-appearing, nontoxic. Lungs clear to auscultation. Urinalysis negative for nitrites and leukocytes. Recommend patient increase water. Urine culture ordered. Will wait for results prior to treating with antibiotics. Patient agrees with plan of care. Patient is aware of diagnosis, understands and agrees to treatment plan. Anticipatory guidance given. Patient agrees to follow-up as directed and is aware of reasons to seek care at the emergency department. Portions of this record may have been created with voice recognition software Differential Diagnosis Differential diagnosis: Likely upper respiratory infection, sinusitis, viral infection and influenza Discharge Plan Discharge Clinical Impression: Influenza A Patient Disposition: Home, Self-Care Condition: Stable Instructions: Influenza (ED) Additional Instructions: You were positive for influenza a today. Influenza is a virus and symptoms may last 10-14 days. Take antiviral as prescribed. Continue taking [id number]-[id number] medication to treat her symptoms such as DayQuil NyQuil cold and flu. Drink at least 64 oz of water a day. Your urinalysis did not show any concerns for urinary tract infection. A urine culture was ordered and results will take 48-72 hours. If your urine culture is positive we will call you at that time and prescribed an antibiotic. Follow-up your primary care physician as needed. Patient Language: Greenlandic Prescriptions: New oseltamivir [Tamiflu] 75 mg capsule 75 mg PO Q12H 5 Days Qty: 10 0RF No Action (DME) Dexcom G7 Sensor Device See Rx Instructions .ROUTE .MEDSUPPLY Qty: 9 3RF Rx Instructions: Use to monitor glcuose aspirin [Aspir-Low] 81 mg tablet,delayed release (DR/EC) 81 mg PO DAILY (DME) lancets [OneTouch Delica Lancets] 33 gauge misc See Rx Instructions .ROUTE .MEDSUPPLY Qty: 100 Rx Instructions: As directed (DME) Accu-Chek Guide test strips Strip See Rx Instructions .ROUTE .MEDSUPPLY Qty: 100 4RF Rx Instructions: As directed daily (DME) blood-glucose meter [Accu-Chek Guide Glucose Meter] Misc See Rx Instructions .ROUTE .MEDSUPPLY Qty: 1 0RF Rx Instructions: As directed to check blood sugar daily fenofibrate 54 mg tablet 54 mg PO DAILY Qty: 90 1RF (DME) pen needle, diabetic [BD Ultra-Fine Mini Pen Needle] 31 gauge x 3/16 ne edle See Rx Instructions .ROUTE .COMPLEX Qty: 200 1RF Dose Instruction: DIRECTED Rx Instructions: DIRECTED insulin degludec [Tresiba FlexTouch U-200] 200 unit/mL (3 mL) insulin pen 50 unit SUBCUT DAILY 90 Days Qty: 27 2RF (DME) Dexcom G6 Transmitter Device See Rx Instructions .ROUTE .COMPLEX Qty: 1 3RF Dose Instruction: USE TO MONITOR GLUCOSE CHANGE EVERY 90 DAYS Rx Instructions: USE TO MONITOR GLUCOSE CHANGE EVERY 90 DAYS levothyroxine 137 mcg tablet See Rx Instructions .ROUTE .COMPLEX Qty: 90 2RF Dose Instruction: TAKE 1 TABLET BY MOUTH EVERY DAY Rx Instructions: TAKE 1 TABLET BY MOUTH EVERY DAY valsartan 80 mg tablet 80 mg PO DAILY Qty: 90 2RF Rx Instructions: TAKE 1 TABLET BY MOUTH EVERY DAY rosuvastatin 10 mg tablet See Rx Instructions .ROUTE .COMPLEX Qty: 90 2RF Dose Instruction: TAKE 1 TABLET BY MOUTH EVERY DAY Rx Instructions: TAKE 1 TABLET BY MOUTH EVERY DAY Ozempic 2 mg/dose (8 mg/3 mL) pen injector See Rx Instructions .ROUTE .COMPLEX Qty: 9 1RF Dose Instruction: INJECT 2 MG (0.75 ML) SUBCUTANEOUSLY WEEKLY FOR 3 MONTHS Rx Instructions: INJECT 2 MG (0.75 ML) SUBCUTANEOUSLY WEEKLY FOR 3 MONTHS metoprolol succinate 100 mg tablet extended release 24 hr 100 mg PO DAILY Qty: 90 2RF Rx Instructions: TAKE 1 TABLET BY MOUTH EVERY DAY meloxicam 15 mg tablet 15 mg PO DAILY PRN (Reason: pain) Qty: 30 2RF Follow-up/Referrals: Paco Parekh MD [Primary Care Provider] - Time of Disposition: 18:38
[2024-06-29 18:38] LABS: EDUAAPPEAR Cloudy; EDUABILI 1+ (Negative); EDUABLOOD Trace (Negative); EDUACOLOR1 Yellow; EDUAGLUCOSE Negative (Negative); EDUAKETONE Negative (Negative); EDUALEUKO Negative (Negative); EDUANITRATE Negative (Negative); EDUAPH 6.5; EDUAPROTEIN 2+ (Negative); EDUASPGRAVITY 1.025
[2024-06-29 18:39] LABS: EDCOVIDSCREEN Negative (Negative); EDINFLUASCREEN Positive (Negative); EDINFLUBSCREEN Negative (Negative)
== END 2024-06-29 18:42 | disposition home or self-care (01) ==
PROVIDERS: Emergency Provider Nurse Practitioner Family; PCP Family Medicine
DX: J10.1 Influenza due to other identified influenza virus with other respiratory manifestations (principal); Z20.822 Contact with and (suspected) exposure to COVID-19; E11.9 Type 2 diabetes mellitus without complications; Z79.4 Long term (current) use of insulin; I10 Essential (primary) hypertension; E78.5 Hyperlipidemia, unspecified; E03.9 Hypothyroidism, unspecified; Z87.891 Personal history of nicotine dependence; Z79.82 Long term (current) use of aspirin
CPT/HCPCS: 81003; 87086; 87426; 87804; 99213; G0463

== ENCOUNTER 2024-07-03 13:27 | Outpatient (CLI) | payer BC, SELFPAY ==
--- NOTE | ~2024-07-03 | XR_ITS ---
XR chest 2V Ordering provider: Paco Parekh MD History: 68 years Female with . R05.9 - Cough, unspecified, FLU, SOB X SUNDAY . Comparison: None. FINDINGS: MEDIASTINUM: The cardiac silhouette is not enlarged. LUNGS: No infiltrates, effusions or pneumothorax. OTHER: No free air under the diaphragm. Degenerative changes of the spine. IMPRESSION: No acute cardiopulmonary pathology. Reviewed, dictated and finalized at location A. CHECKER
== END 2024-07-03 13:28 | disposition home or self-care (01) ==
PROVIDERS: PCP Family Medicine; Visit Provider Family Medicine
DX: R05.9 Cough, unspecified (principal)
CPT/HCPCS: 71046

== ENCOUNTER 2024-08-24 12:26 | Emergency (ER) | payer BC, SELFPAY ==
--- NOTE | 2024-08-24 12:35 | ED.GENADULT ---
HPI - General Adult General Chief complaint: Upper Respiratory Infection Stated complaint: sore throat, head viridiana, uti Time Seen by Provider: 08/24/24 12:35 Source: patient Mode of arrival: ambulatory Limitations: no limitations History of Present Illness HPI narrative: 68-year-old female patient presents to the [facility] with complaints of sore throat that started Alonso night. Patient states she has had a lot of congestion as well. Denies fevers that she is aware of. Patient states she has also had some frequency in urination and feels like she has some odor to her urine but no pain with urination today. Denies any low back pain. Denies fevers, body aches or chills. Denies any nausea, vomiting or diarrhea. Related Data Home Medications ?Medication ?Instructions ?Recorded ?Confirmed ?Last Taken ?Type aspirin 81 mg tablet,delayed 81 mg PO DAILY 06/03/19 08/24/24 04/02/22 History release (Aspir-Low) lancets 33 gauge ([employer] [facility] ea 06/03/19 07/24/24 04/02/22 History Lancets) Allergies Allergy/AdvReac Type Severity Reaction Status Date / Time metformin AdvReac Intermediate diarrhea Verified 07/24/24 07:57 celecoxib AdvReac Mild HANDS AND Verified 07/24/24 07:57 FEET NUMB dapagliflozin AdvReac Unknown yeast Verified 07/24/24 07:57 infections Review of Systems Review of Systems: CONSTITUTIONAL: Denies fever, chills, or sweats. EYES: Denies visual changes, redness, or discharge. ENT: Denies rhinorrhea, congestion, Positive sore throat, denies otalgia. CARDIOVASCULAR: Denies chest pain, palpitations, or edema. RESPIRATORY: Denies cough or dyspnea. GASTROINTESTINAL: Denies abdominal pain, nausea, vomiting, or diarrhea. GENITOURINARY: positive dysuria denies hematuria. SKIN: Denies rash or itching. MUSCULOSKELETAL: Denies back pain, joint pain, or myalgia. NEUROLOGIC: Denies headache, numbness, or weakness. PSYCHIATRIC: Denies anxiety or depression. [facility] Past Medical History Medical History Type 2 diabetes mellitus Vitamin B12 deficiency Vitamin D deficiency BMI greater than 40 HLD (hyperlipidemia) HTN (hypertension) long-term current use of insulin Hypothyroidism Surgical History Surgical History History of hysterectomy Previous back surgery x3 Previous section Family History Family History Mother Family history of osteoporosis Family history of chronic obstructive pulmonary disease Sibling Family history of malignant neoplasm of breast in first degree relative Social History Social History Social History: Smoking packs per day: 1 Smoking cigarettes per day: 20.0 Years smoked: 30 Smoking pack-years: 30.00 Smoking status: Former smoker Tobacco type: cigarettes Second hand tobacco smoke exposure: No Smoking end date: 06/18/16 Alcohol intake: never Substance use: never Substance use type: does not use Do You Feel Safe in your Home?: Yes Lack of Transportation: No Lack of Food: Never True Current Housing: I Have Housing Concerned About Future Housing: No Difficulty Paying Gas/Electric Bills: No Difficulty Paying for Meds: No Currently Unemployed: No Education: Associate Degree Difficulty w/ Childcare or Family Care: No Living arrangements: with family Occupation/Education: occupation Gender identity (if verbalized by the patient): Female Sexual Orientation (if Verbalized by the Patient): Straight or Heterosexual Spiritual care concerns: No Comments At the time of my signature I agree with nursing past medical history, surgical, social, and family history. There is no relevant family history pertinent to the presenting complaint. Exam Narrative: GENERAL: Well-appearing, well-nourished, and in no acute distress. HEAD: Normocephalic, atraumatic. EYES: PERRLA and EOMI. ENT: Nares clear, no rhinorrhea or epistaxis. Mucous membranes moist. posterior pharynx with a lot of mucus noted and slight erythema no tonsillar enlargement, no exudates or lesions present. Bilateral TMs are clear no erythema or foreign bodies the canal. NECK: Supple. No lymphadenopathy CHEST: Clear to auscultation. No respiratory distress. HEART: Regular rate and rhythm. No murmur heard. Normal peripheral pulses. ABDOMEN: Soft, nontender, nondistended, normal active bowel sounds. CVA tenderness on percussion EXTREMITIES: Normal range of motion. No edema. SKIN: Warm, dry, no rash. NEURO: No focal deficits. Alert and oriented x3. Course Course Level of Care: Express Care Visit Vital Signs Vital signs: Vital Signs Temperature 36.8 C 08/24/24 12:42 Pulse Rate 86 08/24/24 12:42 Respiratory Rate 16 08/24/24 12:42 Blood Pressure 145/78 H 08/24/24 12:42 Pulse Oximetry 98 08/24/24 12:42 Temperature 36.8 C 08/24/24 12:42 Pulse Rate 86 08/24/24 12:42 Respiratory Rate 16 08/24/24 12:42 Blood Pressure 145/78 H 08/24/24 12:42 Pulse Oximetry 98 08/24/24 12:42 Vital signs reviewed. The patient has been informed that they may have pre-hypertension or Hypertension based on a BP reading in the department. I recommend that the patient call the primary care provider listed on their discharge instructions or a physician of their choice this week to arrange follow up for further evaluation of possible pre-hypertension or Hypertension Medical Decision Making MDM Narrative Medical decision making narrative: plan of care for patient is to discharge home with antibiotics and she did test positive for strep. Discussed with her that her urine dip was unremarkable for active UTI but we will send to the lab for culture and if it identifies an organism that needs to be treated with antibiotics we will call her in an antibiotic at that time. Patient is aware the plan of care denies any other questions or concerns at this time Differential Diagnosis Differential Diagnosis: Differential diagnosis: Allergic rhinitis, chronic sinusitis, tonsillitis, acute sinusitis, infectious mononucleosis, seasonal influenza, pertussis, diphtheria, meningococcal disease, viral syndrome, viral bronchitis, RSV, COVID-19 Uncomplicated lower UTI, uncomplicated UTI, pyelonephritis Vital Signs Vital Signs: Vital Signs Temperature 36.8 C 08/24/24 12:42 Pulse Rate 86 08/24/24 12:42 Respiratory Rate 16 08/24/24 12:42 Blood Pressure 145/78 H 08/24/24 12:42 Pulse Oximetry 98 08/24/24 12:42 Temperature 36.8 C 08/24/24 12:42 Pulse Rate 86 08/24/24 12:42 Respiratory Rate 16 08/24/24 12:42 Blood Pressure 145/78 H 08/24/24 12:42 Pulse Oximetry 98 08/24/24 12:42 Lab Data Labs: Lab Results 08/24/24 08/24/24 Range/Units 12:51 13:00 POC Urine Color Dark POC Urine Clarity Cloudy POC Urine pH 7.0 POC Ur Specif [place] 1.020 POC Urine Protein 2+ (Negative) POC Ur Glucose (UA) Trace (Negative) POC Urine Ketones Negative (Negative) POC Urine Blood Trace (Negative) POC Urine Nitrite Negative (Negative) POC Urine Bilirubin Negative (Negative) POC Urine Urobilinogen 0.2 POC U Leukocyte Esteras Negative (Negative) POC Influenza A Ag Negative (Negative) POC Influenza B Ag Negative (Negative) POC SARS CoV-2 Ag Negative (Negative) POC Grp A Strep Screen Positive (Negative) Critical Care Time Critical Care Time Critical Care Time: No Discharge Plan Discharge Clinical Impression: Acute streptococcal pharyngitis Patient Disposition: Home, Self-Care Condition: Stable Instructions: Antibiotic Form, Strep Throat (ED) Additional Instructions: -Take the medication as prescribed. Throw away the toothbrush after 24hours of antibiotic. -Eat things that are easy to swallow, like tea or soup, or popsicles to suck on. You might not feel like eating or drinking, but it's important that you get enough liquids. -Oral rinses such as: Salt water gargles and/or may use topical anesthetic (eg. Chloraseptic spray) or lozenges to relieve dryness or throat pain). -Take Tylenol and ibuprofen as needed for pain and fever as directed. -Frequent hand washing or hand cashier payments received is one of the best ways to prevent spread of infection. -Follow up with primary care provider in 2-3 days if condition is not improving or seek ER visit if you start breathing fast/has trouble breathing, is not drinking enough fluids, muffle voice, difficulty opening the mouth. We will send a urine culture off to the lab; if the culture identifies an organism that the prescribed antibiotic will not treat, you will receive a phone call from an urgent care staff member and an appropriate antibiotic will be prescribed. -Your symptoms should begin to improve within a day of starting antibiotics. But you should finish all the antibiotic pills you get. Otherwise your infection might come back. -Also recommend: drink more fluid. It might help flush out germs, and it does no harm -Tylenol/ibuprofen prn for pain or fever -Follow-up with your primary care provider for urine recheck or seek ER visit if condition worsens with high fever, nausea, vomiting and severe back pain. Patient Language: Canadian Prescriptions: New amoxicillin 500 mg tablet 500 mg PO Q12H 10 Days Qty: 20 0RF No Action (DME) Dexcom G7 Sensor Device See Rx Instructions .ROUTE .MEDSUPPLY Qty: 9 3RF Rx Instructions: Use to monitor glcuose aspirin [Aspir-Low] 81 mg tablet,delayed release (DR/EC) 81 mg PO DAILY (DME) lancets [OneTouch Delica Lancets] 33 gauge misc See Rx Instructions .ROUTE .MEDSUPPLY Qty: 100 Rx Instructions: As directed (DME) Accu-Chek Guide test strips Strip See Rx Instructions .ROUTE .MEDSUPPLY Qty: 100 4RF Rx Instructions: As directed daily (DME) blood-glucose meter [Accu-Chek Guide Glucose Meter] [facility] See Rx Instructions .ROUTE .MEDSUPPLY Qty: 1 0RF Rx Instructions: As directed to check blood sugar daily fenofibrate 54 mg tablet 54 mg PO DAILY Qty: 90 1RF (DME) pen needle, diabetic [BD Ultra-Fine Mini Pen Needle] 31 gauge x 3/16 needle See Rx Instructions .ROUTE .COMPLEX Qty: 200 1RF Dose Instruction: DIRECTED Rx Instructions: DIRECTED (DME) Dexcom G6 Transmitter Device See Rx Instructions .ROUTE .COMPLEX Qty: 1 3RF Dose Instruction: USE TO MONITOR GLUCOSE CHANGE EVERY 90 DAYS Rx Instructions: USE TO MONITOR GLUCOSE CHANGE EVERY 90 DAYS levothyroxine 137 mcg tablet See Rx Instructions .ROUTE .COMPLEX Qty: 90 2RF Dose Instruction: TAKE 1 TABLET BY MOUTH EVERY DAY Rx Instructions: TAKE 1 TABLET BY MOUTH EVERY DAY valsartan 80 mg tablet 80 mg PO DAILY Qty: 90 2RF Rx Instructions: TAKE 1 TABLET BY MOUTH EVERY DAY rosuvastatin 10 mg tablet See Rx Instructions .ROUTE .COMPLEX Qty: 90 2RF Dose Instruction: TAKE 1 TABLET BY MOUTH EVERY DAY Rx Instructions: TAKE 1 TABLET BY MOUTH EVERY DAY Ozempic 2 mg/dose (8 mg/3 mL) pen injector See Rx Instructions .ROUTE .COMPLEX Qty: 9 1RF Dose Instruction: INJECT 2 MG (0.75 ML) SUBCUTANEOUSLY WEEKLY FOR 3 MONTHS Rx Instructions: INJECT 2 MG (0.75 ML) SUBCUTANEOUSLY WEEKLY FOR 3 MONTHS metoprolol succinate 100 mg tablet extended release 24 hr 100 mg PO DAILY Qty: 90 2RF Rx Instructions: TAKE 1 TABLET BY MOUTH EVERY DAY meloxicam 15 mg tablet 15 mg PO DAILY PRN (Reason: pain) Qty: 30 2RF insulin degludec [Tresiba FlexTouch U-200] 200 unit/mL (3 mL) insulin pen 40 unit SUBCUT DAILY 90 Days Qty: 18 2RF Follow-up/Referrals: Paco Parekh MD [Primary Care Provider] - Stand Alone Forms: Work/School Release IP Time of Disposition: 13:10
[2024-08-24 12:42] VITALS: BP 145/78; PULSE 86; RESP 16; TEMP 36.8; O2SAT 98
[2024-08-24 13:01] LABS: EDUAAPPEAR Cloudy; EDUABILI Negative (Negative); EDUABLOOD Trace (Negative); EDUACOLOR1 Dark; EDUAGLUCOSE Trace (Negative); EDUAKETONE Negative (Negative); EDUALEUKO Negative (Negative); EDUANITRATE Negative (Negative); EDUAPROTEIN 2+ (Negative); EDUAUROBILI 0.2
[2024-08-24 13:03] LABS: EDCOVIDSCREEN Negative (Negative); EDINFLUASCREEN Negative (Negative); EDINFLUBSCREEN Negative (Negative); EDSTREPNEGPOS1 Positive (Negative)
== END 2024-08-24 13:32 | disposition home or self-care (01) ==
PROVIDERS: Emergency Provider Nurse Practitioner Family; PCP Family Medicine
DX: J02.0 Streptococcal pharyngitis (principal); Z20.822 Contact with and (suspected) exposure to COVID-19; E11.9 Type 2 diabetes mellitus without complications; Z79.4 Long term (current) use of insulin; Z79.85 Long-term (current) use of injectable non-insulin antidiabetic drugs; E78.5 Hyperlipidemia, unspecified; I10 Essential (primary) hypertension; E03.9 Hypothyroidism, unspecified
CPT/HCPCS: 81003; 87086; 87426; 87804; 87880; 99213; G0463

== ENCOUNTER 2024-09-22 08:22 | Outpatient (CLI) | payer BC, SELFPAY ==
--- NOTE | ~2024-09-22 | DEXA_ITS ---
Bone Density Report Name: RAUL PARIKH Age: 68 Sex: Female Ethnicity: White Date of : 1955 Indication: postmenopausal; screening for osteoporosis; hysterectomy; Referring Provider: CHUNG DEAN Study: Bone densitometry was performed. Exam Date: September 22, 2024 Accession number: [id number] Bone Density: Region BMD T-score Z-score Classification AP Spine(L1-L4) 1.281 2.1 4.0 Normal Femoral Neck (Left) 0.880 0.3 1.9 Normal Total Hip (Left) 1.031 0.7 2.0 Normal Femoral Neck (Right) 1.019 1.5 3.1 Normal Total Hip (Right) 1.106 1.3 2.7 Normal Total Hip Mean 1.069 1.0 2.4 Normal World Health Organization criteria for BMD impression classify patients as: Normal (T-score at or above -1.0), Osteopenia (T-score between -1.0 and -2.5), or Osteoporosis (T-score at or below -2.5). 10-year Fracture Risk: FRAX not reported because: All T-scores for Spine Total, Hip Total, Femoral Neck at or above -1.0 Clinical Information Provided by Patient: Has used the following medications: Vitamin D Has the following medical conditions: Hysterectomy Patient maximum height was 69 Menopause Age: 52 No regular weight bearing exercise Drinks caffeinated beverages Onset of menses at age 16 Number of children 2 Impression: The patient has normal bone mass. Discussion: BONE DENSITY IS ABOVE THE MINIMUM DESIRABLE LEVEL AT ALL SKELETAL SITES TESTED. This patient?s bone mineral density is above the minimum desirable level (T-score -1.0 or better) at all sites measured. The patient should follow a healthful lifestyle (good nutrition with adequate calcium and vitamin D, and appropriate weight-bearing exercise). Follow-Up: Consider repeating this study in 5 years or sooner if there is some new clinical indication. Reported by: BECKI on 09/22/2024 8:54:00 AM. Reviewed, dictated and finalized at location [facility]
--- OUTSIDE RECORDS SUMMARY | 2024-09-22 08:40 | XMS_ITS | Clinical Summary ---
Author Organization [facility] Address [address] [place] [address] Care Team Providers Care Rickshaw Driver Name Role Phone Paco Parekh MD Primary Care Provider [phone] Source Comments [facility],non-owned Affiliates and Associated Physician Practices is amultiple site organization consisting of ambulatory clinics and hospital sitesin [place], [place], [place] and [place]. This disclosure is being madepursuant to the Care Everywhere program and may not contain all information available regarding this patient. Last updated 18.[facility] Allergies No known active allergies Medications * Be aware that medications may not be up to date on this document. Alwaysverify current medications with the patient. Medication Sig Dispensed Refills Start Date End Date Status METOPROLOL SUCCINATE PO A ctive LEVOTHYROXINE SODIUM PO A ctive FENOFIBRATE PO Active LOSARTAN POTASSIUM PO Act patric SITagliptin Phosphate (JANUVIA PO) Active Social History Tobacco Use Types Packs/Day Years Used Date Smoking Tobacco: Former Cigarettes 1 30 0 03/07/1987 - 03/07/2017 Smokeless Tobacco: Never Sex and Gender Information Value Date Recorded Sex Assigned at Not on file Gender Identity Not on file Sexual Orientation Not on file Last Filed Vital Signs Vital Sign Reading Time Taken Comments Blood Pressure 126/84 10/11/2018 5:38 PM CDT Pulse 91 10/11/2018 5:38 PM CDT Temperature 36.6 C (97.9 F) 10/11/2018 5:38 PM CDT Respiratory Rate 18 10/11/2018 5:38 PM CDT Oxygen Saturation 97% 10/11/2018 5:38 PM CDT Inhaled Oxygen Concentration - - Weight 122.5 kg (270 lb) 10/11/2018 5:38 PM CDT Height 175.3 cm (5' 9 ) 10/11/2018 5:38 PM CDT Body Mass Index 39.87 10/11/2018 5:38 PM CDT Plan of Treatment Health Maintenance Due Date Last Done Comments BONE DENSITY TESTING 1955 COLOGUARD (AGES 45-75) - COL ON CA SCREENING 1955 COLON MONITORING 1955 COLONOSCOPY - COLON CA SCREENING 1955 CT COLONOGRAPHY - COLON CA SCREENING 1955 Colorectal Cancer Screening 1955 FIT - COLON CA SCREENING 1955 FLEX SIG - COLON CA SCREENING 1955 LIPID TESTING 1955 MAMMOGRAM 1955 HEPATITIS C SCREENING 12/08/1975 DTAP/TDAP/TD VACCINES (1 - Tdap) 1976 LUNG CANCER SCREENING 12/13/2007 PNEUMOCOCCAL VACCINE 50+ (1 of 1 - PCV) 12/13/2007 ZOSTER VACCINE (1 of 2) 12/13/2007 SCREENING FOR DIABETES 10/11/2018 COVID-19 VACCINE (1 - 2023-2 5 season) 2024 DEPRESSION SCREENING 06/18/2024 INFLUENZA VACCINE (Season Ended) 2025 Respiratory Syncytial Virus (RSV) Vaccine Pt: or over 60 yrs (1 - 1-dose 75+ series) 2032 HEPATITIS B VACCINE Aged Out No longe r eligible based on patient's age to complete this topic HIB VACCINE Aged Out No longer eligi ble based on patient's age to complete this topic HPV VACCINE Aged Out No longer eligi ble based on patient's age to complete this topic MENINGOCOCCAL (Group B) VACC INE SHARED DECISION-MAKING Aged Out No longer eligibl e based on patient's age to complete this topic MENINGOCOCCAL GROUPS A/C/Y/W VACCINE Aged Out No longer eligible b ased on patient's age to complete this topic Care Teams Rickshaw Driver Relationship Specialty Start Date End Date Paco Parekh MD [address] [place] [address] PCP - General 04/14/22
--- OUTSIDE RECORDS SUMMARY | 2024-09-22 08:40 | XMS_ITS | Encounter Summary ---
Author Organization [facility] Address [address] [place] [address] Care Team Providers Care Electronic Warfare Officer Name Role Phone Paco Parekh MD Primary Care Provider [phone] Encounter Details Date Type Department Care Team (Late st Contact Info) Description 08/25/2021 Lab Requisition [facility] [address] [place] [address] Rashi Garner MD [address] [place] [address] Social History Tobacco Use Types Packs/Day Years Used Date Smoking Tobacco: Former Cigarettes 1 30 0 03/07/1987 - 03/07/2017 Smokeless Tobacco: Never Sex and Gender Information Value Date Recorded Sex Assigned at Not on file Gender Identity Not on file Sexual Orientation Not on file documented as of this encounter Plan of Treatment Not on file documented as of this encounter Procedures Procedure Name Priority Date/Time Associated Diagnosis Comments DERMATOPATHOLOGY Routine 08/24/2021 12:0 0 AM JUDICIAL ASSISTANT documented in this encounter Results * DERMATOPATHOLOGY (08/24/2021 12:00 AM JUDICIAL ASSISTANT) Case Report Dermatopathology Report Case: [id number] Authorizing Provider: Rashi Garner MD Collected: 08/24/2021 12:00 AM Ordering Location: [facility] Received: 08/25/2021 05:03 PM Pathologist: Jaja Zimmerman MD Specimen: Skin, left breast 2:01 PM CDT DERMATOPATHOLOGY LABORATORY Final Diagnosis Specimen A. SKIN, left breast: BASAL CELL CARCINOMA, NODULAR TYPE (C44.511) 2 2:01 PM T DERMATOPATHOLOGY LABORATORY Clinical History BCCA vs other. Path # [id number]. 2 2:01 PM T DERMATOPATHOLOGY LABORATORY Gross Description Specimen A: Received is one formalin filled container labeled with the patient's name and designated left breast. The specimen consists of a shave biopsy measuring [id number]. Jar 0. 2 2:01 PM T DERMATOPATHOLOGY LABORATORY Microscopic Description Specimen A. SKIN, left breast: Within the dermis there are aggregates of basaloid cells with a high nuclear to cytoplasmic ratio and peripheral palisading. 2 2:01 PM T DERMATOPATHOLOGY LABORATORY Disclaimer An external and internal positive and negative controls are appropriate for the histochemical, immunohistochemical and immunofluorescence stain(s) in this case (if any), except where stated explicitly. The performance characteristics of the stain(s) cited in this report were developed and its performance characteristic determined by the Dermatopathology Laboratory at [facility], directed by Dr. Chi Melo. These tests need not be, and therefore are not, approved by the [place] Food and Drug Administration. The tests are used for clinical purposes. Billing Codes Specimen Charges Stain Charges 11393 1 2 2:01 PM CDT DERMATOPATHOLOGY LABORATORY Embedded Images 2 2:01 PM CDT DERMATOPATHOLOGY LABORATORY Pathology/Cytolog y TISSUE SPECIMEN FROM SKIN / Unknown 08/24/2021 08/25/2021 5:03 PM JUDICIAL ASSISTANT Rashi Garner MD LAB - PATHOLOGY/CYTO LOGY ORDERABLES DERMATOPATHOLOGY LABORATORY [facility] - Department of Dermatology [address], [address] [phone] documented in this encounter Visit Diagnoses Not on filedocumented in this encounter Care Teams Electronic Warfare Officer Relationship Specialty Start Date End Date Paco Parekh MD [address] [place] [id number] PCP - General 04/14/22 documented as of this encounter
== END 2024-09-22 08:23 | disposition home or self-care (01) ==
LOC: ANHIMG 08:23
PROVIDERS: PCP Family Medicine; Visit Provider Physician Assistant
DX: Z78.0 Asymptomatic menopausal state (principal)
CPT/HCPCS: 77080

== ENCOUNTER 2024-10-24 07:43 | Outpatient (CLI) | payer BC, SELFPAY ==
--- NOTE | ~2024-10-24 | MM_ITS ---
EXAMINATION: MM screening [facility] BI w mehdi HISTORY: Screening TECHNIQUE: Craniocaudal and mediolateral oblique 3-D tomosynthesis images were obtained and synthetic 2-D images were generated. CAD analysis was submitted and interpreted. COMPARISON: Comparison to multiple prior studies sequentially, with oldest reviewed study dated 12/2017. BREAST PARENCHYMAL COMPOSITION: Not Dense: The breasts are almost entirely fatty. FINDINGS: There is no evidence of suspicious mass, calcification, or architectural distortion to sugg est malignancy in either breast. There has been no suspicious interval change. IMPRESSION: 1. No mammographic evidence of malignancy. 2. Recommend routine screening mammography in one year. BI-RADS Category 1: Negative Reviewed, dictated and finalized at location A.
--- OUTSIDE RECORDS SUMMARY | 2024-10-24 07:47 | XMS_ITS | Clinical Summary ---
Author Organization [facility] Address [address] [place] [address] Care Team Providers Care Packer Insulation Name Role Phone Paco Parekh MD Primary Care Provider [phone] Source Comments [facility],non-owned Affiliates and Associated Physician Practices is amultiple site organization consisting of ambulatory clinics and hospital sitesin [place], [place], [place] and [place]. This disclosure is being madepursuant to the Care Everywhere program and may not contain all information available regarding this patient. Last updated 18.[facility] Allergies No known active allergies Medications * Be aware that medications may not be up to date on this document. Alwaysverify current medications with the patient. METOPROLOL SUCCINATE PO Active LEVOTHYROXINE SODIUM PO Active FENOFIBRATE PO Activ e LOSARTAN POTASSIUM PO Active SITagliptin Phosphate (JANUVIA PO) Active Social History Tobacco Use Types Packs/Day Years Used Date Smoking Tobacco: Former Cigarettes 1 30 0 03/07/1987 - 03/07/2017 Smokeless Tobacco: Never Comments No Sex and Gender Information Value Date Recorded Sex Assigned at Not on file Legal Sex Female 6:29 AM OPERATIONS SUPERVISOR 2ND SHIFT Gender Identity Not on file Sexual Orientation [...] 12/13/2007 SCREENING FOR DIABETES 10/11/2018 COVID-19 VACCINE ( - 2023-2 5 season) 2024 DEPRESSION SCREENING [...] on patient's age to complete this topic Insurance [place] [place] [id number] Care Teams Packer Insulation Relationship Specialty Start Date End Date Paco Parekh MD [address] [place] [address] PCP - General 04/14/22
--- OUTSIDE RECORDS SUMMARY | 2024-10-24 07:47 | XMS_ITS | Encounter Summary ---
Author Organization [facility] Address [address] [place] [address] Care Team Providers Care Cement Rubber Name Role Phone Paco Parekh MD Primary Care Provider [phone] Encounter Details Date Type Department Care Team (Late st Contact Info) Description 08/25/2021 Lab Requisition [facility] DermPath Lab [address] [place] [id number] Rashi Garner MD [address] [place] [address] Social History Tobacco Use Types Packs/Day Years Used Date Smoking Tobacco: Former Cigarettes 1 30 0 03/07/1987 - 03/07/2017 Smokeless Tobacco: Never Comments No Sex and Gender Information Value Date Recorded Sex Assigned at Not on file Legal Sex Female 6:29 AM PIGMENT PRESSER Gender Identity Not on file Sexual Orientation Not on file documented as of this encounter Plan of Treatment Not on file documented as of this encounter Procedures Procedure Name Priority Date/Time Associated Diagnosis Comments DERMATOPATHOLOGY Routine 08/24/2021 12:0 0 AM PIGMENT PRESSER documented in this encounter Results * DERMATOPATHOLOGY (08/24/2021 12:00 AM PIGMENT PRESSER) Case Report Dermatopathology Report Case: [id number] Authorizing Provider: Rashi Garner MD Collected: 08/24/2021 12:00 AM Ordering Location: [facility] Derm[facility] Lab Received: 08/25/2021 05:03 PM Pathologist: Jaja Zimmerman MD Specimen: Skin, left breast 2:01 PM CDT DERMATOPATHOLOGY LABORATORY Final Diagnosis Specimen A. SKIN, left breast: BASAL CELL CARCINOMA, NODULAR TYPE (C44.511) 2 2:01 PM CDT DERMATOPATHOLOGY LABORATORY Clinical History BCCA vs other. Path # [id number]. 2 2:01 PM CDT DERMATOPATHOLOGY LABORATORY Gross Description Specimen A: Received is one formalin filled container labeled with the patient's name and designated left breast. The specimen consists of a shave biopsy measuring [id number]. Jar 0. 2 2:01 PM CDT DERMATOPATHOLOGY LABORATORY Microscopic Description Specimen A. SKIN, left breast: Within the dermis there are aggregates of basaloid cells with a high nuclear to cytoplasmic ratio and peripheral palisading. 2 2:01 PM CDT DERMATOPATHOLOGY LABORATORY Disclaimer An external and internal positive and negative controls are appropriate for the histochemical, immunohistochemical and immunofluorescence stain(s) in this case (if any), except where stated explicitly. The performance characteristics of the stain(s) cited in this report were developed and its performance characteristic determined by the Dermatopathology Laboratory at [facility], directed by Dr. Chi Melo. These tests need not be, and therefore are not, approved by the [place] Food and Drug Administration. The tests are used for clinical purposes. Billing Codes Specimen Charges Stain Charges 85210 1 2 2:01 PM CDT DERMATOPATHOLOGY LABORATORY Embedded Images 2 2:01 PM CDT DERMATOPATHOLOGY LABORATORY Pathology/Cytolog y TISSUE SPECIMEN FROM SKIN / Unknown 08/24/2021 08/25/2021 5:03 PM PIGMENT PRESSER us Rashi Garner MD LAB - PATHOLOGY/CYTOLOGY ORDER JACIEL Final Result DERMATOPATHOLOGY LABORATORY [facility] - Department of Dermatology [address] [place] [address], [facility] [phone] documented in this encounter Visit Diagnoses Not on filedocumented in this encounter Care Teams Cement Rubber Relationship Specialty Start Date End Date Paco Parekh MD [address] [place] [address] PCP - General 04/14/22 documented as of this encounter
== END 2024-10-24 07:44 | disposition home or self-care (01) ==
LOC: ANHIMG 07:44
PROVIDERS: PCP Family Medicine; Visit Provider Family Medicine
DX: Z12.31 Encounter for screening mammogram for malignant neoplasm of breast (principal)
CPT/HCPCS: 77063; 77067

== ENCOUNTER 2024-11-08 11:21 | Emergency (ER) | payer BC, SELFPAY ==
[2024-11-08 11:32] VITALS: BP 132/49; PULSE 91; RESP 16; TEMP 37.2; O2SAT 97
--- NOTE | 2024-11-08 12:09 | ED_ITS ---
HPI - Ear Problem General Chief complaint: Ear Stated complaint: LT Ear Pain Time Seen by Provider: 11/08/24 12:09 Source: patient Mode of arrival: ambulatory Limitations: no limitations History of Present Illness HPI Narrative: 68-year-old female presents with complaint of left ear pain for the past 2-3 days. No hearing changes. Reports nasal congestion, sneezing, postnasal drainage, coughing and sore throat for the past week. Not taking any aylv-ipn-angpzse medications to treat symptoms. Afebrile. No chest pain or shortness of breath. All systems reviewed and negative except as noted above. Related Data Home Medications ?Medication ?Instructions ?Recorded ?Confirmed ?Last Taken ?Type aspirin 81 mg tablet,delayed 81 mg PO DAILY 06/03/19 08/24/24 04/02/22 History release (Aspir-Low) lancets 33 gauge (Donya Labsuch Delica #100 ea 06/03/19 07/24/24 04/02/22 History Lancets) Allergies Allergy/AdvReac Type Severity Reaction Status Date / Time metformin AdvReac Intermediate diarrhea Verified 11/08/24 11:47 celecoxib AdvReac Mild HANDS AND Verified 11/08/24 11:47 FEET NUMB dapagliflozin AdvReac Unknown yeast Verified 11/08/24 11:47 infections Review of Systems Review of Systems: CONSTITUTIONAL: Denies fever, chills, or sweats. EYES: Denies visual changes, redness, or discharge. ENT: Reports rhinorrhea, congestion, postnasal drainage, sore throat, left ear pain CARDIOVASCULAR: Denies chest pain, palpitations, or edema. RESPIRATORY: Reports cough. Denies dyspnea. GASTROINTESTINAL: Denies abdominal pain, nausea, vomiting, or diarrhea. GENITOURINARY: Denies dysuria or hematuria. SKIN: Denies rash or itching. MUSCULOSKELETAL: Denies back pain, joint pain, or myalgia. NEUROLOGIC: Denies headache, numbness, or weakness. PSYCHIATRIC: Denies anxiety or depression. All other systems reviewed are negative, except as documented in HPI. [facility] Past Medical History Medical History Type 2 diabetes mellitus Vitamin B12 deficiency Vitamin D deficiency BMI greater than 40 HLD (hyperlipidemia) HTN (hypertension) custodial current use of insulin Hypothyroidism Surgical History Surgical History History of hysterectomy Previous back surgery x3 Previous section Family History Family History Mother Family history of osteoporosis Family history of chronic obstructive pulmonary disease Sibling Family history of malignant neoplasm of breast in first degree relative Social History Social History Social History: Smoking packs per day: 1 Smoking cigarettes per day: 20.0 Years smoked: 30 Smoking pack-years: 30.00 Smoking status: Former smoker Tobacco type: cigarettes Second hand tobacco smoke exposure: No Smoking end date: 06/18/16 Alcohol intake: never Substance use: never Substance use type: does not use Do You Feel Safe in your Home?: Yes Lack of Transportation: No Lack of Food: Never True Current Housing: I Have Housing Concerned About Future Housing: No Difficulty Paying Gas/Electric Bills: No Difficulty Paying for Meds: No Currently Unemployed: No Education: Associate Degree Difficulty w/ Childcare or Family Care: No Living arrangements: with family Occupation/Education: occupation Gender identity (if verbalized by the patient): Female Sexual Orientation (if Verbalized by the Patient): Straight or Heterosexual Spiritual care concerns: No Comments At time of signature, agree with nursing past medical, surgical, social and family history. There is no relevant family history pertinent to the presenting complaint. Exam Narrative: GENERAL: This is a well-nourished, well-developed patient, in no apparent distress. HEAD: normocephalic, atraumatic. EYES: PERRL. Sclera clear/white. Vision is grossly intact. EARS: External ears normal, auditory canals clear and without drainage, fluid to left TM with mild erythema. Right TM is normal. No perforation bilaterally. Hearing grossly intact. NOSE: External nose normal with clear nasal drainage with erythema to bilateral nares THROAT: Mucous membranes moist, erythema to posterior pharynx with postnasal drainage. No swelling or exudates. NECK: Neck supple, non-tender without lymphadenopathy, masses or thyromegaly. CARDIOVASCULAR: Regular rate and rhythm without murmurs, gallops, or rubs. RESPIRATORY: Clear to auscultation. Breath sounds equal bilaterally. No wheezes, rales, or rhonchi. SKIN: warm, Dry, intact with no suspicious lesions or rash, good texture and turgor. NEURO: awake, alert, and oriented to person, place and time. There were no obvious focal neurologic abnormalities. EXTREMITIES: No joint tenderness, effusion, or edema noted. Course Course Level of Care: Express Care Visit Vital Signs Vital signs: Vital Signs Temperature 37.2 C 11/08/24 11:32 Pulse Rate 91 11/08/24 11:32 Respiratory Rate 16 11/08/24 11:32 Blood Pressure 132/49 L 11/08/24 11:32 Pulse Oximetry 97 11/08/24 11:32 Temperature 37.2 C 11/08/24 11:32 Pulse Rate 91 11/08/24 11:32 Respiratory Rate 16 11/08/24 11:32 Blood Pressure 132/49 L 11/08/24 11:32 Pulse Oximetry 97 11/08/24 11:32 Reviewed Medical Decision Making MDM Narrative Medical decision making narrative: Will treat patient with antibiotic for left serous otitis media. Recommend daily allergy medications for seasonal allergies. Patient is alert, nontoxic. Lungs clear to auscultation. Vital Signs Vital Signs: Vital Signs Temperature 37.2 C 11/08/24 11:32 Pulse Rate 91 11/08/24 11:32 Respiratory Rate 16 11/08/24 11:32 Blood Pressure 132/49 L 11/08/24 11:32 Pulse Oximetry 97 11/08/24 11:32 Temperature 37.2 C 11/08/24 11:32 Pulse Rate 91 11/08/24 11:32 Respiratory Rate 16 11/08/24 11:32 Blood Pressure 132/49 L 11/08/24 11:32 Pulse Oximetry 97 11/08/24 11:32 Discharge Plan Discharge Clinical Impression: Acute serous otitis media, left ear, Acute rhinosinusitis Patient Disposition: Home Condition: Stable Instructions: Antibiotic Form, Rhinosinusitis (ED), Fluid In The Ear (Serous Otitis Media) (ED) Additional Instructions: Take medications as prescribed. Take an nabb-xzg-bfdvasv antihistamine daily such as Claritin or Zyrtec. At least 64 oz of water a day. See your doctor if symptoms are not improving. Patient Language: East Timorese Prescriptions: New amoxicillin 875 mg tablet 875 mg PO Q12H 10 Days Qty: 20 0RF fluticasone propionate [Flonase Allergy Relief] 50 mcg/actuation spray,suspension 1 spray intranasal BID Qty: 16 0RF Rx Instructions: administer into each nostril benzonatate 200 mg capsule 200 mg PO TID PRN (Reason: cough) Qty: 20 0RF No Action (DME) Dexcom G7 Sensor Device See Rx Instructions .ROUTE .MEDSUPPLY Qty: 9 3RF Rx Instructions: Use to monitor glcuose aspirin [Aspir-Low] 81 mg tablet,delayed release (DR/EC) 81 mg PO DAILY (DME) lancets [OneTouch Delica Lancets] 33 gauge misc See Rx Instructions .ROUTE .MEDSUPPLY Qty: 100 Rx Instructions: As directed (DME) Accu-Chek Guide test strips Strip See Rx Instructions .ROUTE .MEDSUPPLY Qty: 100 4RF Rx Instructions: As directed daily (DME) blood-glucose meter [Accu-Chek Guide Glucose Meter] Misc See Rx Instructions .ROUTE .MEDSUPPLY Qty: 1 0RF Rx Instructions: As directed to check blood sugar daily fenofibrate 54 mg tablet 54 mg PO DAILY Qty: 90 1RF (DME) pen needle, diabetic [BD Ultra-Fine Mini Pen Needle] 31 gauge x 3/16 needle See Rx Instructions .ROUTE .COMPLEX Qty: 200 1RF Dose Instruction: DIRECTED Rx Instructions: DIRECTED (DME) Dexcom G6 Transmitter Device See Rx Instructions .ROUTE .COMPLEX Qty: 1 3RF Dose Instruction: USE TO MONITOR GLUCOSE CHANGE EVERY 90 DAYS Rx Instructions: USE TO MONITOR GLUCOSE CHANGE EVERY 90 DAYS levothyroxine 137 mcg tablet See Rx Instructions .ROUTE .COMPLEX Qty: 90 2RF Dose Instruction: TAKE 1 TABLET BY MOUTH EVERY DAY Rx Instructions: TAKE 1 TABLET BY MOUTH EVERY DAY valsartan 80 mg tablet 80 mg PO DAILY Qty: 90 2RF Rx Instructions: TAKE 1 TABLET BY MOUTH EVERY DAY rosuvastatin 10 mg tablet See Rx Instructions .ROUTE .COMPLEX Qty: 90 2RF Dose Instruction: TAKE 1 TABLET BY MOUTH EVERY DAY Rx Instructions: TAKE 1 TABLET BY MOUTH EVERY DAY metoprolol succinate 100 mg tablet extended release 24 hr 100 mg PO DAILY Qty: 90 2RF Rx Instructions: TAKE 1 TABLET BY MOUTH EVERY DAY insulin degludec [Tresiba FlexTouch U-200] 200 unit/mL (3 mL) insulin pen 40 unit SUBCUT DAILY 90 Days Qty: 18 2RF meloxicam 15 mg tablet 15 mg PO DAILY PRN (Reason: pain) Qty: 30 2RF Ozempic 2 mg/dose (8 mg/3 mL) pen injector See Rx Instructions .ROUTE .COMPLEX Qty: 9 1RF Dose Instruction: INJECT 2 MG (0.75 ML) SUBCUTANEOUSLY WEEKLY FOR 3 MONTHS Rx Instructions: INJECT 2 MG (0.75 ML) SUBCUTANEOUSLY WEEKLY FOR 3 MONTHS Follow-up/Referrals: Paco Parekh MD [Primary Care Provider] - Time of Disposition: 12:15
== END 2024-11-08 12:18 | disposition home or self-care (01) ==
PROVIDERS: Emergency Provider Nurse Practitioner Family; PCP Family Medicine
DX: H65.02 Acute serous otitis media, left ear (principal); J01.90 Acute sinusitis, unspecified; Z87.891 Personal history of nicotine dependence; E11.9 Type 2 diabetes mellitus without complications; Z79.4 Long term (current) use of insulin; Z79.85 Long-term (current) use of injectable non-insulin antidiabetic drugs; I10 Essential (primary) hypertension; E78.5 Hyperlipidemia, unspecified; E03.9 Hypothyroidism, unspecified; Z79.82 Long term (current) use of aspirin
CPT/HCPCS: 99213; G0463

== ENCOUNTER 2025-05-19 16:41 | Emergency (ER) | payer OTHER, SELFPAY ==
[2025-05-19 16:48] VITALS: BP 165/98; PULSE 84; RESP 16; TEMP 36.8; O2SAT 98
--- NOTE | 2025-05-19 17:00 | ED_ITS ---
HPI - Skin/Abscess/Foreign Bdy General Chief complaint: Skin/Abscess/Foreign Body Stated complaint: Rash Time Seen by Provider: 05/19/25 16:45 Source: patient and RN notes reviewed Mode of arrival: ambulatory Limitations: no limitations History of Present Illness HPI narrative: 69-year-old female presents Express Care complaining of rash to her right mid back for 2 weeks. Patient has been trying Neosporin cream without any relief. Patient reports mild pain and reports that is pruritic. Patient has a history of diabetes. Patient denies any fevers, body aches, chills, nausea, vomiting, or any other symptoms Related Data Home Medications ?Medication ?Instructions ?Recorded ?Confirmed ?Last Taken ?Type aspirin 81 mg tablet,delayed 81 mg PO DAILY 06/03/19 1 07/20/24 04/02/22 History release (Aspir-Low) lancets 33 gauge (OneTouch Delica #100 ea 06/03/1905/1204/02/22 History Lancets) insulin degludec 200 unit/mL (3 50 unit subcut DAILY 0 01/07/25 05/19/25 Unknown History mL) subcutaneous pen (Tresiba FlexTouch U-200 insulin) Allergies Allergy/AdvReac Type Severity Reaction Status Date / Time metformin AdvReac Intermediate diarrhea Verified 05/19/25 16:49 celecoxib AdvReac Mild HANDS AND Verified 05/19/25 16:49 FEET NUMB dapagliflozin AdvReac Unknown yeast Verified 05/19/25 16:49 infections Review of Systems Review of Systems: CONSTITUTIONAL: Denies fever, chills, or sweats. EYES: Denies visual changes, redness, or discharge. ENT: Denies rhinorrhea, congestion, sore throat, or otalgia. CARDIOVASCULAR: Denies chest pain, palpitations, or edema. RESPIRATORY: Denies cough or dyspnea. GASTROINTESTINAL: Denies abdominal pain, nausea, vomiting, or diarrhea. GENITOURINARY: Denies dysuria or hematuria. SKIN: Positive for rash and itching. MUSCULOSKELETAL: Denies back pain, joint pain, or myalgia. NEUROLOGIC: Denies headache, numbness, or weakness. PSYCHIATRIC: Denies anxiety or depression. All other systems reviewed are negative, except as documented in HPI. 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 Hypothyroidism Surgical History Surgical History History of hysterectomy Previous back surgery x3 Previous section Family History Family History Mother Family history of osteoporosis Family history of chronic obstructive pulmonary disease Sibling Family history of malignant neoplasm of breast in first degree relative Social History Social History Social History: Smoking packs per day: 0 Smoking cigarettes per day: 0.0 Years smoked: 30 Smoking pack-years: 0.00 Smoking status: Former smoker Tobacco type: cigarettes Second hand tobacco smoke exposure: No Smoking end date: 06/18/16 Alcohol intake: never Substance use: never Substance use type: does not use Lack of Transportation: No Lack of Food: Never True Current Housing: I Have Housing Concerned About Future Housing: No Difficulty Paying Gas/Electric Bills: No Difficulty Paying for Meds: No Currently Unemployed: No Education: Associate Degree Difficulty w/ Childcare or Family Care: No Living arrangements: with family Occupation/Education: occupation Gender identity (if verbalized by the patient): Female Sexual Orientation (if Verbalized by the Patient): Straight or Heterosexual Spiritual care concerns: No Comments At the time of my signature, I reviewed and agree with the nursing past medical, surgical, social, and family history. There is no relevant family history pertinent to the patient complaint. Exam Narrative: GENERAL: This is a well-nourished, well-developed adult, in no apparent distress. They are non ill-appearing, nontoxic appearing. HEAD: normocephalic, atraumatic. EYES: Sclera clear/white. Conjunctiva normal. Vision is grossly intact. Extraocular movements intact EARS: External ears normal, Hearing grossly intact. NOSE: External nose normal THROAT: Mucous membranes moist, NECK: Neck supple, CARDIOVASCULAR: Regular rate and rhythm RESPIRATORY: Respiratory rate normal, respiratory effort nonlabored, no respiratory distress SKIN: Back: Erythematous homogenous patch located in a skin fold to the right mid back appears moist and slightly excoriated in the middle. Is measuring approximately 15 cm x 3 cm. There are satellite lesions present. It is pruritic. No area of fluctuance, no induration, no exudate. NEURO: awake, alert, and oriented to person, place and time. There were no obvious focal neurologic abnormalities. EXTREMITIES: No joint tenderness, effusion, or edema noted. BACK: Nontender without deformity. Course Course Level of Care: Express Care Visit Vital Signs Vital signs: Vital Signs Temperature 98.2 F 05/19/25 16:48 Pulse Rate 84 05/19/25 16:48 Respiratory Rate 16 05/19/25 16:48 Blood Pressure 165/98 H 05/19/25 16:48 Pulse Oximetry 98 05/19/25 16:48 Temperature 98.2 F 05/19/25 16:48 Pulse Rate 84 05/19/25 16:48 Respiratory Rate 16 05/19/25 16:48 Blood Pressure 165/98 H 05/19/25 16:48 Pulse Oximetry 98 05/19/25 16:48 MDM MDM Narrative Medical decision making narrative: Appears patient has a skin use infection, will treat with clotrimazole cream. Discussed supportive care. Discussed physical exam findings. Advised supportive measures and signs/symptoms to go to the ER. Pt is appropriate for outpt treatment and f/u. Differential Diagnosis Differential Diagnosis: Intertrigo, cellulitis, dermophytosis, herpes zoster, contract dermtitis Critical Care Time Critical Care Time Critical Care Time: No Discharge Plan Discharge Clinical Impression: Intertrigo Patient Disposition: Home Condition: Stable Instructions: Antibiotic Form, Skin Yeast Infection (ED) Additional Instructions: Use the clotrimazole cream as directed. Use it for 4 weeks. Wash the skin daily with mild soap and water, dry the area well. You may dry the skin area with a geography department chair on a cool setting. Keep the area dry and a moisture free. Apply anti moisture [place] or powder such as gold [place] to help keep the area dry throughout the day. Leave the skin open to air when feasible. Follow-up with PCP in 1 week for recheck. Go to the ER for any worsening redness, swelling, pain, fevers, or any serious concerns. Patient Language: Kinyarwanda Prescriptions: New clotrimazole 1 % cream 1 applic topical BID 28 Days Qty: 45 1RF No Action buspirone 5 mg tablet 5 mg PO TID Qty: 90 0RF insulin degludec [Tresiba FlexTouch U-200] 200 unit/mL (3 mL) insulin pen 50 unit SUBCUT DAILY levothyroxine 137 mcg tablet 137 mcg PO .COMPLEX Qty: 90 2RF Rx Instructions: 137 mcg orally 5 days a week, skip sunday and sunday; cholecalciferol (vitamin D3) 1,250 mcg (50,000 unit) capsule 1,250 mcg PO WEEKLY Qty: 14 1RF aspirin [Aspir-Low] 81 mg tablet,delayed release (DR/EC) 81 mg PO DAILY (DME) lancets [OneTouch Delica Lancets] 33 gauge misc See Rx Instructions .ROUTE .MEDSUPPLY Qty: 100 Rx Instructions: As directed (DME) Accu-Chek Guide test strips Strip See Rx Instructions .ROUTE .MEDSUPPLY Qty: 100 4RF Rx Instructions: As directed daily (DME) blood-glucose meter [Accu-Chek Guide Glucose Meter] Misc See Rx Instructions .ROUTE .MEDSUPPLY Qty: 1 0RF Rx Instructions: As directed to check blood sugar daily fenofibrate 54 mg tablet 54 mg PO DAILY Qty: 90 1RF (DME) pen needle, diabetic [BD Ultra-Fine Mini Pen Needle] 31 gauge x 3/16 needle See Rx Instructions .ROUTE .COMPLEX Qty: 200 1RF Dose Instruction: DIRECTED Rx Instructions: DIRECTED (DME) Dexcom G6 Transmitter Device See Rx Instructions .ROUTE .COMPLEX Qty: 1 3RF Dose Instruction: USE TO MONITOR GLUCOSE CHANGE EVERY 90 DAYS Rx Instructions: USE TO MONITOR GLUCOSE CHANGE EVERY 90 DAYS (DME) Dexcom G7 Sensor Device See Rx Instructions .ROUTE .MEDSUPPLY Qty: 9 3RF Rx Instructions: Use to monitor glcuose cyanocobalamin (vitamin B-12) 1,000 mcg tablet 1,000 mcg PO DAILY Qty: 90 1RF rosuvastatin 10 mg tablet See Rx Instructions .ROUTE .COMPLEX Qty: 90 2RF Dose Instruction: TAKE 1 TABLET BY MOUTH EVERY DAY Rx Instructions: TAKE 1 TABLET BY MOUTH EVERY DAY meloxicam 15 mg tablet 15 mg PO DAILY PRN (Reason: pain) Qty: 30 2RF Ozempic 2 mg/dose (8 mg/3 mL) pen injector See Rx Instructions .ROUTE .COMPLEX Qty: 9 1RF Dose Instruction: INJECT 2 MG (0.75 ML) SUBCUTANEOUSLY WEEKLY FOR 3 MONTHS Rx Instructions: INJECT 2 MG (0.75 ML) SUBCUTANEOUSLY WEEKLY FOR 3 MONTHS valsartan 80 mg tablet 80 mg PO DAILY Qty: 90 2RF Rx Instructions: TAKE 1 TABLET BY MOUTH EVERY DAY metoprolol succinate 100 mg tablet extended release 24 hr 100 mg PO DAILY Qty: 90 2RF Rx Instructions: TAKE 1 TABLET BY MOUTH EVERY DAY amlodipine 5 mg tablet 5 mg PO DAILY Qty: 30 2RF Follow-up/Referrals: Paco Parekh MD [Primary Care Provider, Family Practice] Time of Disposition: 16:58
== END 2025-05-19 17:00 | disposition home or self-care (01) ==
PROVIDERS: PCP Family Medicine
DX: L30.4 Erythema intertrigo (principal); E11.9 Type 2 diabetes mellitus without complications; Z79.4 Long term (current) use of insulin; Z79.85 Long-term (current) use of injectable non-insulin antidiabetic drugs; I10 Essential (primary) hypertension; E78.5 Hyperlipidemia, unspecified; E03.9 Hypothyroidism, unspecified; E53.8 Deficiency of other specified B group vitamins; E55.9 Vitamin D deficiency, unspecified; Z87.891 Personal history of nicotine dependence; Z79.82 Long term (current) use of aspirin
CPT/HCPCS: 99213; G0463